=== PATIENT | female | born 1980 | race Caucasian/White ===

== ENCOUNTER → 2017-05-19 | Outpatient (CLI) | payer MEDICAID ==
--- NOTE | 2017-05-19 17:06 | REP ---
TWO-VIEW CHEST: REASON: Cough. COMPARISON: No priors. FINDINGS: The superior mediastinal structures are midline. The cardiac silhouette is unremarkable in size, shape, and position. The diaphragmatic surfaces of the lungs are regular, and the costophrenic angles are clear. The pulmonary greer are clear. The imaged osseous structures are intact. IMPRESSION: There is no acute cardiopulmonary disease. Signed by Rogelio Castañeda DO 05/19/2017 07:32 P
== END ==
LOC: M LAB 13:16 → M RAD 13:16
PROVIDERS: ATTEND Physician Assistant Medical
DX: R06.02 Shortness of breath (principal); R05 Cough

== ENCOUNTER 2018-01-13 20:58 | Emergency (ER) | payer OTHER, MEDICAID ==
[2018-01-14] MEDS ORDERED: NORCO, ANEXSIA 5/325MG TABLET (HYDROcodone/ACETAMINOPHEN) PO (01:30)
== END 2018-01-14 01:46 | disposition home or self-care (01) ==
LOC: M ED 01-14 01:46
DX: S90.32XA Contusion of left foot, initial encounter (principal); W22.8XXA Striking against or struck by other objects, initial encounter; Y92.099 Unspecified place in other non-institutional residence as the place of occurrence of the external cause; Y93.9 Activity, unspecified; Y99.9 Unspecified external cause status; R51 Headache; J45.909 Unspecified asthma, uncomplicated; F41.9 Anxiety disorder, unspecified; F32.9 Major depressive disorder, single episode, unspecified; Z79.899 Other long term (current) drug therapy; Z91.040 Latex allergy status
CPT/HCPCS: 73630

== ENCOUNTER → 2018-04-01 | Outpatient (REF) | payer OTHER ==
[2018-04-01 15:01] LABS: CHLAMYDIA DNA AMPLIFICATION NEGATIVE (NEGATIVE); GC DNA AMPLIFICATION NEGATIVE (NEGATIVE)
== END ==
LOC: M SFHCWAGY 12:53
DX: Z11.3 Encounter for screening for infections with a predominantly sexual mode of transmission (principal)

== ENCOUNTER 2018-04-04 19:51 | Emergency (ER) | payer OTHER ==
[2018-04-04] MEDS: PERCOCET 5MG/325MG TAB PO ×2 (23:49)
[2018-04-05 00:21] LABS: BASO # 0.1 10^3/uL (0.0-0.2); BASO % 0.6 % (0.0-1.0); EOS # 0.4 10^3/uL (0.0-0.50); EOS % 3.7 % (0.0-3.0); HEMATOCRIT 39.1 % (36.0-47.0); HEMOGLOBIN 12.9 g/dl (12.0-15.5); IMMATURE GRANULOCYTE % 0.8 % (0-3.0); LYMPH # 3.7 10^3/uL (1.5-4.5); LYMPH % 35.8 % (24.0-44.0); MEAN CORPUSCULAR HEMOGLOBIN 32.3 pg (27.0-33.0); MEAN CORPUSCULAR VOLUME 97.8 fl (80.0-96.0); MONO # 0.7 10^3/uL (0.0-0.8); MONO % 6.6 % (0.0-5.0); NEUTROPHILS # 5.4 10^3/uL (1.8-7.7); NEUTROPHILS % 52.5 % (36.0-66.0); PLATELET COUNT, AUTOMATED 293 10^3/uL (150-450); RED CELL DISTRIBUTION WIDTH 14.1 % (11.5-14.5); WHITE BLOOD COUNT 10.3 10^3/uL (4.0-10.0)
[2018-04-05 00:24] LABS: KETONE, URINE AUTO RFX NEGATIVE (NEGATIVE); LEUKOCYTE ESTERASE UR AUTO RFX NEGATIVE (NEGATIVE); NITRITE, URINE AUTO RFX NEGATIVE (NEGATIVE); RBC, URINE AUTO RFX 1 /HPF (0-3); SPECIFIC GRAVITY UR AUTO RFX 1.012 (1.002-1.035); SQUAM EPITHELIAL CELL UR AURFX 0 /HPF (0-6); WBC, URINE AUTO RFX 0 /HPF (0-3)
[2018-04-05 00:26] LABS: ANION GAP 5 MEQ/L (8-16); BLOOD UREA NITROGEN 9 MG/DL (7-18); CALCIUM LEVEL 8.4 MG/DL (8.5-10.1); CARBON DIOXIDE LEVEL 27 MEQ/L (21-32); CHLORIDE LEVEL 111 MEQ/L (98-107); CREATININE FOR GFR 0.74 MG/DL (0.55-1.30); GLOMERULAR FILTRATION RATE > 60.0 (>60); GLUCOSE, FASTING 95 MG/DL (70-100); POTASSIUM SERUM 4.2 MEQ/L (3.5-5.1); SODIUM LEVEL 143 MEQ/L (136-145)
[2018-04-05 01:31] LABS: ALBUMIN 3.3 GM/DL (3.2-5.2); ALBUMIN/GLOBULIN RATIO 0.89 (1.00-1.93); ALKALINE PHOSPHATASE 82 U/L (45-117); ALT/SGPT 16 U/L (12-78); AST/SGOT 11 U/L (7-37); BILIRUBIN,DIRECT < 0.1 MG/DL (0.0-0.2); BILIRUBIN,TOTAL < 0.1 MG/DL (0.2-1.0)
== END 2018-04-05 02:18 | disposition home or self-care (01) ==
LOC: M ED 04-05 02:18
DX: N83.01 Follicular cyst of right ovary (principal); N80.9 Endometriosis, unspecified; Z87.42 Personal history of other diseases of the female genital tract; J45.909 Unspecified asthma, uncomplicated; Z98.51 Tubal ligation status; F17.210 Nicotine dependence, cigarettes, uncomplicated; Z91.040 Latex allergy status; Z79.899 Other long term (current) drug therapy
CPT/HCPCS: 76856

== ENCOUNTER 2018-06-09 19:37 | Emergency (ER) | payer OTHER ==
[2018-06-09] MEDS: KETOROLAC 30 MG/ML VIAL (J1885) IV (20:16)
[2018-06-09 20:20] LABS: BASO # 0.1 10^3/uL (0.0-0.2); BASO % 0.5 % (0.0-1.0); EOS # 0.4 10^3/uL (0.0-0.50); EOS % 2.9 % (0.0-3.0); HEMATOCRIT 38.8 % (36.0-47.0); HEMOGLOBIN 12.9 g/dl (12.0-15.5); IMMATURE GRANULOCYTE % 0.6 % (0-3.0); LYMPH # 4.4 10^3/uL (1.5-4.5); LYMPH % 33.1 % (24.0-44.0); MEAN CORPUSCULAR HEMOGLOBIN 31.3 pg (27.0-33.0); MEAN CORPUSCULAR HGB CONC 33.2 g/dl (32.0-36.5); MEAN CORPUSCULAR VOLUME 94.2 fl (80.0-96.0); MONO % 7.4 % (0.0-5.0); NEUTROPHILS # 7.4 10^3/uL (1.8-7.7); NEUTROPHILS % 55.5 % (36.0-66.0); PLATELET COUNT, AUTOMATED 345 10^3/uL (150-450); RED BLOOD COUNT 4.12 10^6/uL (4.00-5.40); RED CELL DISTRIBUTION WIDTH 13.3 % (11.5-14.5); WHITE BLOOD COUNT 13.3 10^3/uL (4.0-10.0)
[2018-06-09 20:35] LABS: PARTIAL THROMBOPLASTIN TIME 28.8 SECONDS (25.4-37.6); PROTHROMBIN TIME 12.2 SECONDS (12.1-14.4)
[2018-06-09 20:47] LABS: ANION GAP 9 MEQ/L (8-16); BLOOD UREA NITROGEN 7 MG/DL (7-18); CALCIUM LEVEL 8.5 MG/DL (8.5-10.1); CARBON DIOXIDE LEVEL 24 MEQ/L (21-32); CHLORIDE LEVEL 111 MEQ/L (98-107); CK-MB VALUE MASS < 1.0 NG/ML (<3.6); CPK CREATINE PHOSPHOKINASE 75 U/L (26-192); CREATININE FOR GFR 0.79 MG/DL (0.55-1.30); GLOMERULAR FILTRATION RATE > 60.0 (>60); GLUCOSE, FASTING 96 MG/DL (70-100); MB/CK RELATIVE INDEX 1.33 (< OR =4); POTASSIUM SERUM 3.4 MEQ/L (3.5-5.1); SODIUM LEVEL 144 MEQ/L (136-145); TROPONIN I < 0.02 NG/ML (< 0.10)
[2018-06-09 21:01] LABS: CONTROL LINE HCG INT CTR LINE PRESENT; HCG, SERUM QUALITATIVE NEGATIVE (NEGATIVE)
[2018-06-09] MEDS ORDERED: ISOVUE-370 76% 100ML VIAL (Q9967) As Ordered (21:08)
[2018-06-09] MEDS: MORPHINE 4 MG/ML 1ML VIAL/SYRINGE (J2270) IV (22:35)
[2018-06-09 23:40] LABS: CK-MB VALUE MASS < 1.0 NG/ML (<3.6); CPK CREATINE PHOSPHOKINASE 66 U/L (26-192); MB/CK RELATIVE INDEX 1.52 (< OR =4); TROPONIN I < 0.02 NG/ML (< 0.10)
== END 2018-06-09 23:55 | disposition home or self-care (01) ==
LOC: M ED 19:37
DX: M94.0 Chondrocostal junction syndrome [Tietze] (principal); R94.31 Abnormal electrocardiogram [ECG] [EKG]; F33.9 Major depressive disorder, recurrent, unspecified; F17.200 Nicotine dependence, unspecified, uncomplicated; Z86.79 Personal history of other diseases of the circulatory system; Z91.040 Latex allergy status; Z79.2 Long term (current) use of antibiotics; Z79.899 Other long term (current) drug therapy
CPT/HCPCS: J2270

== ENCOUNTER 2019-03-19 00:09 | Emergency (ER) | payer OTHER ==
[~2019-03-19] VITALS: Ht 160 cm; Wt 63.6 kg
[~2019-03-19 00:09] MED LIST: ACET1TAB55 PO; AMOX500C PO; GABA-845 PO; HYDR-3715 PO; IBUP-1114 PO; KETO10TAB PO; NAPR-837 PO; PROZ40CA PO; ZOLO50TA PO
[2019-03-19] MEDS ORDERED: KETOROLAC 60 MG/2 ML VIAL (J1885) IM ONE (01:30)
[2019-03-19] MEDS ORDERED: CYCLOBENZAPRINE 10 MG TAB PO ONE (01:30)
--- NOTE | 2019-03-19 02:34 | REPVR ---
EXAM: CT Cervical Spine Without Contrast EXAM DATE/TIME: 03/19/2019 1:51 AM CLINICAL HISTORY: 38 years old, female; Injury or trauma; Fall; Initial encounter; Blunt trauma; Additional info: Fell TECHNIQUE: Imaging protocol: Computed tomography images of the cervical spine without contrast. Coronal and sagittal reformatted images were created and reviewed. Radiation optimization: All CT scans at this facility use at least one of these dose optimization techniques: automated exposure control; mA and/or kV adjustment per patient size (includes targeted exams where dose is matched to clinical indication); or iterative reconstruction. COMPARISON: No relevant prior studies available. FINDINGS: Vertebrae: No acute fracture. Normal alignment. Discs/Spinal canal/Neural foramina: No spinal stenosis. No neural foraminal narrowing. Soft tissues: Unremarkable. Lungs: Lung apices are normal. IMPRESSION: Negative CT cervical spine. No fracture or subluxation is evident and no spinal or foraminal stenosis. Electronically signed by: Gael Gray On 03/19/2019 02:33:54 AM
--- NOTE | 2019-03-19 02:37 | REPVR ---
EXAM: CT Lumbar Spine Without Contrast EXAM DATE/TIME: 03/19/2019 1:51 AM CLINICAL HISTORY: 38 years old, female; Injury or trauma; Fall; Initial encounter; Blunt trauma (contusions or hematomas); Additional info: Fell TECHNIQUE: Imaging protocol: Computed tomography images of the lumbar spine without contrast. Coronal and sagittal reformatted images were created and reviewed. Radiation optimization: All CT scans at this facility use at least one of these dose optimization techniques: automated exposure control; mA and/or kV adjustment per patient size (includes targeted exams where dose is matched to clinical indication); or iterative reconstruction. COMPARISON: No relevant prior studies available. FINDINGS: Vertebrae: No acute fracture. Normal alignment. L1-L2: The disc is well-maintained with early degenerative changes of the facets no spinal or foraminal stenosis. L2-L3: Minimal facet arthropathy with no spinal or foraminal stenosis. L3-L4: Minimal facet arthropathy with no spinal or foraminal stenosis. L4-L5: Minimal facet arthropathy with no spinal or foraminal stenosis. L5-S1: Minimal diffuse bulge of the disc with minimal annular calcification posteriorly to the left of midline and minimal facet arthropathy with no spinal or foraminal stenosis. Soft tissues: Unremarkable. IMPRESSION: 1. Minimal multilevel facet arthropathy. 2. Otherwise negative CT lumbar spine. No fracture or subluxation is evident and no spinal or foraminal stenosis. Electronically signed by: Gael Gray On 03/19/2019 02:37:36 AM
--- NOTE | 2019-03-19 02:41 | REPVR ---
EXAM: CT Maxillofacial Without Contrast EXAM DATE/TIME: 03/19/2019 1:51 AM CLINICAL HISTORY: 38 years old, female; Injury or trauma; Fall; Initial encounter; Blunt trauma (contusions or hematomas); Forehead; Additional info: Fell TECHNIQUE: Imaging protocol: Computed tomography images of the face without contrast. Coronal and sagittal reformatted images were created and reviewed. Radiation optimization: All CT scans at this facility use at least one of these dose optimization techniques: automated exposure control; mA and/or kV adjustment per patient size (includes targeted exams where dose is matched to clinical indication); or iterative reconstruction. COMPARISON: No relevant prior studies available. FINDINGS: Orbits: Orbits are normal. Globes are unremarkable. Sinuses: Normal. No air-fluid levels. Bones/joints: No fractures. Dental: Caries involving the few remaining teeth in the mandible. Absent maxillary teeth. Soft tissues: Slight left forehead soft tissue swelling. IMPRESSION: 1. Slight left forehead soft tissue swelling. 2. Absence of most teeth with caries involving some of the few remaining mandibular teeth. 3. Otherwise negative CT facial bones. No fracture. Electronically signed by: Gael Gray On 03/19/2019 02:40:46 AM
[2019-03-19 02:57] VITALS: BP 129/60
[2019-03-19] MEDS ORDERED: CYCL5TAB PO (03:01)
== END 2019-03-19 03:17 | disposition home or self-care (01) ==
LOC: M ED 00:09
DX: M54.2 Cervicalgia (principal); M54.5 Low back pain; R22.0 Localized swelling, mass and lump, head; W10.8XXA Fall (on) (from) other stairs and steps, initial encounter; Y92.099 Unspecified place in other non-institutional residence as the place of occurrence of the external cause; Y93.9 Activity, unspecified; F17.210 Nicotine dependence, cigarettes, uncomplicated; J45.909 Unspecified asthma, uncomplicated; N80.9 Endometriosis, unspecified; R51 Headache; Z79.891 Long term (current) use of opiate analgesic; Z79.899 Other long term (current) drug therapy; Z91.040 Latex allergy status
CPT/HCPCS: 70486; 72125; 72131; 96372; 99283; J1885

== ENCOUNTER 2019-11-29 13:44 | Emergency (ER) | payer OTHER ==
[~2019-11-29 13:44] MED LIST changes: -ACET-683 PO; -AUGM875T28 PO; -GABA-843; -TRAM50TA2 PO
[2019-11-29] MEDS ORDERED: GABA-843 (13:56)
[2019-11-29] MEDS ORDERED: ACET-683 PO (13:56)
[2019-11-29 14:14] LABS: BASO # 0.1 10^3/uL (0.0-0.2); BASO % 0.5 % (0.0-1.0); EOS # 0.6 10^3/uL (0.0-0.5); EOS % 4.2 % (0.0-3.0); HEMATOCRIT 37.4 % (36.0-47.0); HEMOGLOBIN 11.8 g/dl (12.0-15.5); LYMPH # 3.3 10^3/uL (1.5-5.0); LYMPH % 22.1 % (24.0-44.0); MEAN CORPUSCULAR HGB CONC 31.6 g/dl (32.0-36.5); MEAN CORPUSCULAR VOLUME 98.2 fl (80.0-96.0); MONO # 0.8 10^3/uL (0.0-0.8); MONO % 5.2 % (0.0-5.0); NEUTROPHILS % 67.4 % (36.0-66.0); PLATELET COUNT, AUTOMATED 361 10^3/uL (150-450); RED BLOOD COUNT 3.81 10^6/uL (4.00-5.40); WHITE BLOOD COUNT 14.9 10^3/uL (4.0-10.0)
[2019-11-29 14:52] LABS: ALBUMIN 3.2 GM/DL (3.2-5.2); ALT/SGPT 12 U/L (12-78); BILIRUBIN,DIRECT < 0.1 MG/DL (0.0-0.2); BILIRUBIN,TOTAL 0.3 MG/DL (0.2-1.0); BLOOD UREA NITROGEN 3 MG/DL (7-18); CALCIUM LEVEL 8.5 MG/DL (8.5-10.1); CARBON DIOXIDE LEVEL 30 MEQ/L (21-32); CHLORIDE LEVEL 107 MEQ/L (98-107); CREATININE FOR GFR 0.84 MG/DL (0.55-1.30); GLOMERULAR FILTRATION RATE > 60.0 (>60); GLUCOSE, FASTING 93 MG/DL (70-100); POTASSIUM SERUM 3.6 MEQ/L (3.5-5.1); SODIUM LEVEL 142 MEQ/L (136-145); TOTAL PROTEIN 6.8 GM/DL (6.4-8.2)
[2019-11-29 15:00] VITALS: BP 129/62
[2019-11-29] MEDS ORDERED: traMADol 50 MG TAB PO ONE (15:00)
[2019-11-29] MEDS ORDERED: TRAM50TA2 PO (15:17)
[2019-11-29] MEDS ORDERED: AUGM875T28 PO (15:17)
== END 2019-11-29 15:34 | disposition home or self-care (01) ==
LOC: EDBD 13:44 → M ED 13:44
DX: K04.7 Periapical abscess without sinus (principal); Z79.899 Other long term (current) drug therapy; Z91.040 Latex allergy status

== ENCOUNTER → 2019-11-29 | Outpatient (REF) | payer OTHER ==
[~2019-11-29] MED LIST changes: +ACET-683 PO; +AUGM875T28 PO; +CYCL5TAB PO; +GABA-843; +TRAM50TA2 PO
== END ==
LOC: M LAB REF 14:31
PROVIDERS: ATTEND Internal Medicine
DX: K05.219 Aggressive periodontitis, localized, unspecified severity (principal)

== ENCOUNTER → 2020-07-01 | Outpatient (CLI) | payer OTHER ==
[~2020-07-01] MED LIST changes: +ACET-683 PO; +AUGM875T28 PO; +GABA-843; +TRAM50TA2 PO
--- NOTE | 2020-07-01 19:07 | REP ---
INDICATION: WRIST PAIN. COMPARISON: None TECHNIQUE: Five views FINDINGS: There is no acute fracture or destructive osseous lesion. IMPRESSION: Negative exam. <Electronically signed by Rogelio Castañeda > 07/01/20 [id number]
== END ==
LOC: M WUC 18:02
PROVIDERS: ATTEND Nurse Practitioner Family
DX: M25.532 Pain in left wrist (principal)

== ENCOUNTER 2020-09-25 16:31 | Emergency (ER) | payer OTHER ==
[~2020-09-25] VITALS: Ht 160 cm; Wt 63.7 kg
[~2020-09-25 16:31] MED LIST changes: +GABA-282; -GABA-843
--- OUTSIDE RECORDS SUMMARY | 2020-09-25 16:38 | CCD | Continuity of Care Document ---
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 Organization Unknown Address [address] [place] [id number] Phone [phone] Problems Description No Information Available Social History Type Date Description Comments Sex Unknown ETOH Use Occasionally consumes alcohol Tobacco Use Start: Unknown Patient is a current smoker, smo kes every day Tobacco Use Start: Unknown Heavy tobacco smoker (more than 10 cigarettes/day) Smoking Status Reviewed: 07/01/20 Heavy tobacco smoker (more than 10 cigarettes/day) Allergies, Adverse Reactions, Alerts Description No Known Drug Allergies Medications Active Medications SIG Qnty Indications Ordering Provide r Date Prozac 40mg Capsules Unknown Gabapentin 300mg Capsules 1 three times a day x 7 days Unknown Immunizations Description No Information Available Vital Signs Date Vital Result Comment 07/01/2020 5:41pm BP Systolic 133 mmHg BP Diastolic 81 mmHg Heart Rate 74 /min Respiratory Rate 16 /min O2 % BldC Oximetry 97 % Body Temperature 98.4 F Weight 140.00 lb Height 63 inches 5'3" BMI (Body Mass Index) 24.8 kg/m2 Pain Level 8 Results Description No Information Available Procedures Description No Information Available Medical Devices Description No Information Available Encounters Type Date Location Provider Dx Diagnosis Office Visit 07/01/2020 5:20p Main Office Ericka Yan NP M25. 532 Pain in left wrist M79.642 Pain in left hand Assessments Date Code Description Provider 07/01/2020 M25.532 Pain in left wrist Ericka carias NP 07/01/2020 M79.642 Pain in left hand Ericka álvarez NP Plan of Treatment 07/01/2020 - Ericka Yan NP* M25.532 Pain in left wrist* Comments:* wet read xray: no acute fracture/dislocation appreciatedpending radiologist repo rtACE wrapped in officeRICE, alt with heattylenol PRN for pain/swellingf/u PRN or with PCPpatient v/u & agrees to plan * M79.642 Pain in left hand Functional Status Description No Information Available Mental Status Description No Information Available Referrals Description No Information Available
--- OUTSIDE RECORDS SUMMARY | 2020-09-25 16:38 | CCD | Continuity of Care Document ---
Author Author Jeane YAN [employer] OPER[employer] Organization Unknown Address [address] [place] [id number] Phone [phone] Problems Description No Information Available Social History [...] to plan * M79.642 Pain in left hand* Comments:* as above Functional Status Description No Information Available Mental Status Description No Information Available Referrals Description No Information Available
--- OUTSIDE RECORDS SUMMARY | 2020-09-25 16:38 | CCD ---
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 Name Role Phone Everardo, Namrata DO Unavailable Unavailable Everardo, Namrata DO Unavailable Unavailable Everardo, Namrata DO Unavailable Unavailable Everardo, Namrata DO Unavailable Unavailable Everardo, Namrata DO Unavailable Unavailable Everardo, Namrata DO Unavailable Unavailable Everardo, Namrata DO Unavailable Unavailable Everardo, Namrata DO Unavailable Unavailable Everardo, Namrata DO Unavailable Unavailable Everardo, Namrata DO Unavailable Unavailable Everardo, Namrata DO Unavailable Unavailable Everardo, Namrata DO Unavailable Unavailable Everardo, Namrata DO Unavailable Unavailable Everardo, Namrata DO Unavailable Unavailable Everardo, Namrata DO Unavailable Unavailable Everardo, Namrata DO Unavailable Unavailable Everardo, Namrata DO Unavailable Unavailable Everardo, Namrata DO Unavailable Unavailable Everardo, Namrata DO Unavailable Unavailable Everardo, Namrata DO Unavailable Unavailable Everardo, Namrata DO Unavailable Unavailable Everardo, Namrata DO Unavailable Unavailable Everardo, Namrata DO Unavailable Unavailable Everardo, Namrata DO Unavailable Unavailable Everardo, Namrata DO Unavailable Unavailable Everardo, Namrata DO Unavailable Unavailable Everardo, Namrata DO Unavailable Unavailable Everardo, Namrata DO Unavailable Unavailable Everardo, Namrata DO Unavailable Unavailable Everardo, Namrata DO Unavailable Unavailable Everardo, Namrata DO Unavailable Unavailable Everardo, Namrata DO Unavailable Unavailable Everardo, Namrata DO Unavailable Unavailable Everardo, Namrata DO Unavailable Unavailable Everardo, Namrata DO Unavailable Unavailable Everardo, Namrata DO Unavailable Unavailable Everardo, Namrata DO Unavailable Unavailable Everardo, Namrata DO Unavailable Unavailable Everardo, Namrata DO Unavailable Unavailable Everardo, Namrata DO Unavailable Unavailable Everardo, Namrata DO Unavailable Unavailable Everardo, Namrata DO Unavailable Unavailable Everardo, Namrata DO Unavailable Unavailable Everardo, Namrata DO Unavailable Unavailable Everardo, Namrata DO Unavailable Unavailable Everardo, Namrata DO Unavailable Unavailable Everardo, Namrata DO Unavailable Unavailable Everardo, Namrata DO Unavailable Unavailable Everardo, Namrata DO Unavailable Unavailable Everardo, Namrata DO Unavailable Unavailable Everardo, Namrata DO Unavailable Unavailable Everardo, Namrata DO Unavailable Unavailable Everardo, Namrata DO Unavailable Unavailable Everardo, Namrata DO Unavailable Unavailable Everardo, Namrata DO Unavailable Unavailable Everardo, Namrata DO Unavailable Unavailable Everardo, Namrata DO Unavailable Unavailable Everardo, Namrata DO Unavailable Unavailable Everardo, Namrata DO Unavailable Unavailable Everardo, Namrata DO Unavailable Unavailable Everardo, Namrata DO Unavailable Unavailable Everardo, Namrata DO Unavailable Unavailable Everardo, Namrata DO Unavailable Unavailable Everardo, Namrata DO Unavailable Unavailable Everardo, Namrata DO Unavailable Unavailable Everardo, Namrata DO Unavailable Unavailable Everardo, Namrata DO Unavailable Unavailable Everardo, Namrata DO Unavailable Unavailable Everardo, Namrata DO Unavailable Unavailable Everardo, Namrata DO Unavailable Unavailable Everardo, Namrata DO Unavailable Unavailable Everardo, Namrata DO Unavailable Unavailable Juan, Ericka LEGAL TRANSCRIBER Unavailable Unavailable Juan, Ericka LEGAL TRANSCRIBER Unavailable Unavailable Juan, Ericka LEGAL TRANSCRIBER Unavailable Unavailable Juan, Ericka LEGAL TRANSCRIBER Unavailable Unavailable Juan, Ericka LEGAL TRANSCRIBER Unavailable Unavailable Juan, Ericka LEGAL TRANSCRIBER Unavailable Unavailable Juan, Ericka LEGAL TRANSCRIBER Unavailable Unavailable Juan, Ericka LEGAL TRANSCRIBER Unavailable Unavailable Juan, Ericka LEGAL TRANSCRIBER Unavailable Unavailable Juan, Ericka LEGAL TRANSCRIBER Unavailable Unavailable Juan, Ericka LEGAL TRANSCRIBER Unavailable Unavailable Re-disclosure Warning The records that you are about to access may contain information from federally-assisted alcohol or drug abuse programs. If such information is present, then the following federally mandated warning applies: This information has been disclosed to you from records protected by federal confidentiality rules (42 CFR part 2). The federal rules prohibit you from making any further disclosure of this information unless further disclosure is expressly permitted by the written consent of the person to whom it pertains or as otherwise permitted by 42 CFR part 2. A general authorization for the release of medical or other information is NOT sufficient for this purpose. The Federal rules restrict any use of the information to criminally investigate or prosecute any alcohol or drug abuse patient.The records that you are about to access may contain highly sensitive health information, the redisclosure of which is protected by Article 27-F of the [facility] Public Health law. If you continue you may have access to information: Regarding HIV / AIDS; Provided by facilities licensed or operated by the [facility] Office of Mental Health; or Provided by the [facility] Office for People With Developmental Disabilities. If such information is present, then the following [facility] mandated warning applies: This information has been disclosed to you from confidential records which are protected by state law. State law prohibits you from making any further disclosure of this information without the specific written consent of the person to whom it pertains, or as otherwise permitted by law. Any unauthorized further disclosure in violation of state law may result in a fine or group home sentence or both. A general authorization for the release of medical or other information is NOT sufficient authorization for further disc losure. Family History Family Member Name Family Member Gender Family Member Status Date o f Status Description Data Source(s) Unknown Male Problem [facility] ([facility]) Unknown Male Problem [facility] ([facility]) Unknown Male Problem [facility] ([facility] Encounters Encounter Providers Location Date Indications Data Source(s ) Outpatient Attender: Ericka sung 07/01/2020 04:20:00 PM EST [facility] ([facility]) Outpatient Attender: Namrata Youngblood 03/04 02:45:00 PM EDT [facility] ([facility] ) Outpatient Attender: Namrata Youngblood 11/29 01:15:00 PM EDT [facility] ([facility] ) Medications Medication Brand Name Start Date Product Form Dose Route Admi nistrative Instructions Pharmacy Instructions Status Indications Reaction Description Data Source(s) 300 mg 09/01/2020 12:00:00 AM EST capsule 30 TAKE ONE CAPSULE BY MOUTH AT BEDTIME TAKE ONE CAPSULE BY MOUTH AT BEDTIME SOLD: 09/01/2020 [facility] 20 mg 08/28/2020 12:00:00 AM EST capsule 60 TAKE ONE CAPSULE BY MOUTH TWICE A DAY TAKE ONE CAPSULE BY MOUTH TWICE A DAY SOLD: 09/01/2020 [facility] 300 mg 01/25/2020 12:00:00 AM EDT capsule 30 TAKE ONE CAPSULE BY MOUTH AT BEDTIME TAKE ONE CAPSULE BY MOUTH AT BEDTIME SOLD: 03/30/2020 [facility] 300 mg 01/25/2020 12:00:00 AM EDT capsule 30 TAKE ONE CAPSULE BY MOUTH AT BEDTIME TAKE ONE CAPSULE BY MOUTH AT BEDTIME SOLD: 07/02/2020 [facility] 300 mg 01/25/2020 12:00:00 AM EDT capsule 30 TAKE ONE CAPSULE BY MOUTH AT BEDTIME TAKE ONE CAPSULE BY MOUTH AT BEDTIME SOLD: 04/29/2020 [facility] 300 mg 01/25/2020 12:00:00 AM EDT capsule 30 TAKE ONE CAPSULE BY MOUTH AT BEDTIME TAKE ONE CAPSULE BY MOUTH AT BEDTIME SOLD: 05/22/2020 [facility] 300 mg 01/25/2020 12:00:00 AM EDT capsule 30 TAKE ONE CAPSULE BY MOUTH AT BEDTIME TAKE ONE CAPSULE BY MOUTH AT BEDTIME SOLD: 01/25/2020 [facility] 300 mg 01/25/2020 12:00:00 AM EDT capsule 30 TAKE ONE CAPSULE BY MOUTH AT BEDTIME TAKE ONE CAPSULE BY MOUTH AT BEDTIME SOLD: 07/31/2020 [facility] 300 mg 01/25/2020 12:00:00 AM EDT capsule 30 TAKE ONE CAPSULE BY MOUTH AT BEDTIME TAKE ONE CAPSULE BY MOUTH AT BEDTIME SOLD: 02/21/2020 [facility] PPD 01/17/2020 12:00:00 AM EDT completed [facility] Medication administered onsite 5-325 mg 12/29/2019 12:00:00 AM EDT tablet 10 TAKE ONE TABLET BY MOUTH EVERY 4 HOURS NEEDED FOR PAIN, MAXIMUM DAILY DOSE = 6 TAKE ONE TABLET BY MOUTH EVERY 4 HOURS NEEDED FOR PAIN, MAXIMUM DAILY DOSE = 6 SOLD: 12/29/2019 [facility] 600 mg 12/27/2019 12:00:00 AM EDT tablet 20 TAKE 1 TABLET BY MOUTH EVERY 6 HOURS NEEDED TAKE 1 TABLET BY MOUTH EVERY 6 HOURS NEEDED SOLD: 020 [facility] 0.12 % 12/27/2019 12:00:00 AM EDT mouthwash 473 RINSE MOUTH WITH 15MLS (1 CAPFUL) FOR 30 SECONDS IN THE MORNING AND IN THE EVENING AFTER TOOTHBRUSHING. SPIT OUT AFTER RINSING. DO NOT SWALLOW. RINSE MOUTH WITH 15MLS (1 CAPFUL) FOR 30 SECONDS IN THE MORNING AND IN THE EVENING AFTER TOOTHBRUSHING. SPIT OUT AFTER RINSING. DO NOT SWALLOW. SOLD: 12/27/2019 [facility] 325 mg 12/27/2019 12:00:00 AM EDT tablet 12 TAKE 1 TABLET BY MOUTH EVERY 6 HOURS NEEDED FOR PAIN TAKE 1 TABLET BY MOUTH EVERY 6 HOURS NEEDED FOR PAIN SOLD: 12/27/2019 [facility] 500 mg 12/19/2019 12:00:00 AM EDT tablet 30 TAKE 1 TABLET BY MOUTH TWO TIMES A DAY WITH FOOD FOR 10 DAYS THEN NEEDED TAKE 1 TABLET BY MOUTH TWO TIMES A DAY WITH FOOD FOR 10 DAYS THEN NEEDED SOLD: 12/27/2019 [facility] Naproxen 500 MG Oral Tablet Naproxen 12/19/2019 12:00:00 AM EDT ORAL active [facility] ([facility]) 600 mg 12/11/2019 12:00:00 AM EDT tablet 21 TAKE ONE TABLET BY MOUTH THREE TIMES A DAY WITH FOOD FOR 7 DAYS TAKE ONE TABLET BY MOUTH THREE TIMES A D AY WITH FOOD FOR 7 DAYS SOLD: 12/11/2019 [facility] 500 mg 12/11/2019 12:00:00 AM EDT capsule 21 TAKE ONE CAPSULE BY MOUTH THREE TIMES A DAY FOR 7 DAYS TAKE ONE CAPSULE BY MOUTH THREE TIMES A DAY FOR 7 DAYS SOLD: 12/11/2019 [facility] 5-325 mg 11/30/2019 12:00:00 AM EDT tablet 30 TAKE ONE TABLET BY MOUTH EVERY 8 HOURS NEEDED FOR PAIN, MAXIMUM DAILY DOSE = 3 TAKE ONE TABLET BY MOUTH EVERY 8 HOURS NEEDED FOR PAIN, MAXIMUM DAILY DOSE = 3 SOLD: 11/30/2019 [facility] Acetaminophen 325 MG / Oxycodone Hydrochloride 5 MG Or al Tablet [Percocet] Percocet 11/30/2019 12:00:00 AM EDT ORAL active [facility] ([facility]) 875-125 mg 11/29/2019 12:00:00 AM EDT tablet 14 TAKE ONE TABLET BY MOUTH TWICE A DAY TAKE ONE TABLET BY MOUTH TWICE A DAY SOLD: 11/29/2019 [facility] 50 mg 11/29/2019 12:00:00 AM EDT tablet 4 TAKE ONE TABLET BY MOUTH TWICE A DAY NEEDED FOR PAIN MAXIMUM DAILY DOSE = 2 TAKE ONE TABLET BY MOUTH TWICE A DAY NEEDED FOR PAIN MAXIMUM DAILY DOSE = 2 SOLD: 11/29/2019 [facility] 20 mg 11/20/2019 12:00:00 AM EDT capsule 60 TAKE ONE CAPSULE BY MOUTH TWICE A DAY TAKE ONE CAPSULE BY MOUTH TWICE A DAY SOLD: 12/27/2019 [facility] 20 mg 11/20/2019 12:00:00 AM EDT capsule 60 TAKE ONE CAPSULE BY MOUTH TWICE A DAY TAKE ONE CAPSULE BY MOUTH TWICE A DAY SOLD: 01/25/2020 [facility] 20 mg 11/20/2019 12:00:00 AM EDT capsule 60 TAKE ONE CAPSULE BY MOUTH TWICE A DAY TAKE ONE CAPSULE BY MOUTH TWICE A DAY SOLD: 07/31/2020 [facility] 20 mg 11/20/2019 12:00:00 AM EDT capsule 60 TAKE ONE CAPSULE BY MOUTH TWICE A DAY TAKE ONE CAPSULE BY MOUTH TWICE A DAY SOLD: 03/03/2020 [facility] 20 mg 11/20/2019 12:00:00 AM EDT capsule 60 TAKE ONE CAPSULE BY MOUTH TWICE A DAY TAKE ONE CAPSULE BY MOUTH TWICE A DAY SOLD: 11/29/2019 [facility] 20 mg 11/20/2019 12:00:00 AM EDT capsule 60 TAKE ONE CAPSULE BY MOUTH TWICE A DAY TAKE ONE CAPSULE BY MOUTH TWICE A DAY SOLD: 04/29/2020 [facility] 20 mg 11/20/2019 12:00:00 AM EDT capsule 60 TAKE ONE CAPSULE BY MOUTH TWICE A DAY TAKE ONE CAPSULE BY MOUTH TWICE A DAY SOLD: 07/02/2020 [facility] 250 mg 09/26/2019 12:00:00 AM EST tablet 6 TAKE TWO TABLETS BY MOUTH AT ONCE ON THE FIRST DAY THEN TAKE ONE DAILY THEREAFTER TAKE TWO TABLETS BY MOUTH AT ONCE ON THE FIRST DAY THEN TAKE ONE DAILY THEREAFTER SOLD: 09/27/2019 [facility] 600 mg 09/19/2019 12:00:00 AM EST tablet 18 TAKE ONE TABLET BY MOUTH THREE TIMES A DAY NEEDED TAKE ONE TABLET BY MOUTH THREE TIMES A DAY NEEDED S OLD: 09/20/2019 [facility] 500 mg 09/19/2019 12:00:00 AM EST capsule 21 TAKE ONE CAPSULE BY MOUTH THREE TIMES A DAY UNTIL GONE TAKE ONE CAPSULE BY MOUTH THREE TIMES A DAY UNTIL GONE SOLD: 09/20/2019 [facility] 300 mg 08/14/2019 12:00:00 AM EST capsule 30 TAKE ONE CAPSULE BY MOUTH AT BEDTIME TAKE ONE CAPSULE BY MOUTH AT BEDTIME SOLD: 10/03/2019 [facility] 300 mg 08/14/2019 12:00:00 AM EST capsule 30 TAKE ONE CAPSULE BY MOUTH AT BEDTIME TAKE ONE CAPSULE BY MOUTH AT BEDTIME SOLD: 01/01/2020 [facility] 300 mg 08/14/2019 12:00:00 AM EST capsule 30 TAKE ONE CAPSULE BY MOUTH AT BEDTIME TAKE ONE CAPSULE BY MOUTH AT BEDTIME SOLD: 10/31/2019 [facility] 300 mg 08/14/2019 12:00:00 AM EST capsule 30 TAKE ONE CAPSULE BY MOUTH AT BEDTIME TAKE ONE CAPSULE BY MOUTH AT BEDTIME SOLD: 11/29/2019 [facility] 300 mg 08/14/2019 12:00:00 AM EST capsule 30 TAKE ONE CAPSULE BY MOUTH AT BEDTIME TAKE ONE CAPSULE BY MOUTH AT BEDTIME SOLD: 08/14/2019 [facility] 20 mg 03/10/2019 12:00:00 AM EDT capsule 60 TAKE ONE CAPSULE BY MOUTH TWICE A DAY TAKE ONE CAPSULE BY MOUTH TWICE A DAY SOLD: 08/14/2019 [facility] 20 mg 03/10/2019 12:00:00 AM EDT capsule 60 TAKE ONE CAPSULE BY MOUTH TWICE A DAY TAKE ONE CAPSULE BY MOUTH TWICE A DAY SOLD: 10/25/2019 [facility] 20 mg 03/10/2019 12:00:00 AM EDT capsule 60 TAKE ONE CAPSULE BY MOUTH TWICE A DAY TAKE ONE CAPSULE BY MOUTH TWICE A DAY SOLD: 09/18/2019 [facility] Insurance Providers Payer name Policy type / Coverage type Policy ID Covered constitution party ID Covered constitution party's relationship to gonzalez Policy Gonzalez Plan Information [facility] O [id number] S [id number] [facility] COMMUNITY PLAN MCDO [id number] SP [id number] [id number] SP [id number] [facility] Community Plan Commercial [id number] Self [id number] [facility] Community Plan Commercial [id number] Self [id number] Medicaid Medigap Part B [id number] Self [id number] DO Not Use (Now #114) Commercial [id number] Family Dependent [id number] [facility] Community Warren/Ess PLS Commercial [id number] Self [id number] [facility] Community Plan Commercial [id number] Self [id number] [facility] Community Plan Commercial [id number] Self [id number] [facility] Community Plan Commercial [id number] Self [id number] Medicaid Medigap Part B [id number] Self [id number] DO Not Use (Now #114) Commercial [id number] Family Dependent [id number] ANSI-Medicaid [id number] [facility] Community Plan Commercial [id number] Self [id number] [facility] Community Plan Commercial [id number] Self [id number] [facility] Plan Commercial [id number] Self [id number] Medicaid Medigap Part B [id number] Self [id number] DO Not Use (Now #114) Commercial [id number] Family Dependent [id number] [facility] Plan Commercial [id number] Self [id number] ANSI-Medicaid [id number] ANSI-Medicaid [id number] Medicaid Medigap Part B [id number] Self [id number] DO Not Use (Now #114) Commercial [id number] Family Dependent [id number] Medicaid Medigap Part B [id number] Self [id number] DO Not Use (Now #114) Commercial [id number] Family Dependent [id number] [facility] Community Plan Commercial [id number] Self [id number] Medicaid Medigap Part B [id number] Self [id number] DO Not Use (Now #114) Commercial [id number] Family Dependent [id number] MEDICAID [id number] SP [id number] Medicaid Medigap Part B [id number] Self [id number] [employer] Commercial [id number] Family Dependent [id number] Medicaid Medigap Part B [id number] Self [id number] [employer] Commercial [id number] Family Dependent [id number] Medicaid Medigap Part B [id number] Self [id number] [employer] Commercial [id number] Family Dependent [id number] [facility] Community Warren/Ess PLS Commercial [id number] Self [id number] Medicaid Medigap Part B [id number] Self [id number] [employer] Commercial [id number] Family Dependent [id number] Medicaid Medigap Part B [id number] Self [id number] [employer] Commercial [id number] Family Dependent [id number] UNHC COMMUNITY PLAN MCDHMO [id number] SP [id number] [facility] Warren/Ess PLS Commercial [id number] Self [id number] Medicaid Medigap Part B 1 1 Self 1 1 [employer] Commercial Family Dependent UNHC COMMUNITY PLAN MCDHMO [id number] SP [id number] SELF PAY ONLY [id number] SP [id number] [facility] COMMUNITY PLAN MCDHMO [id number] SP [id number] [facility] Community Plan Commercial Self [facility]-Community Plan-[place]ren Commercial Self [facility]-Community Plan-Warren Commercial Self [facility] [id number] [facility] [id number] Results ID Date Data Source [id number] 03/04/2020 12:00:00 AM EDT [facility] Imaging Namrata Mcgee DO Patient Name: DEISY [id number] [facility] Date of : 1980[place] [address] [facility]: [facility] [id number] Fax: [phone] EXAM: SHOULDER (COMPLETE-MINIMUM 2 VIEWS) LEFT X-RAYCLINICAL INFORMATION: Fell from stairs, trauma.Three views are provided. Comparison to the humerus this date. AC jointshows no widening of the joint space or elevation of the clavicle. There isno clavicular rib, scapular or humeral head fracture. No subluxation ordislocation. Acromion and coracoid were grossly intact.IMPRESSION:1. Negative right shoulder series for fracture or acute bony finding. 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 This is well before the costovertebral articulation. Thereis also an old healed and remodeled 5th rib fracture evidentposterolaterally.SCARLET Medrano/Jimi you for referring SERGO SANDOVAL to our office. Electronically Signed - VJ BISWAS MD 03/05/20 8:24 Name Value Range Interpretation Code Description Data Elda rce(s) Supporting Document(s) ID Date Data Source [id number] 03/04/2020 12:00:00 AM EDT [facility] Imaging Namrata Mcgee DO Patient Name: SERGO [id number] [facility] Date of : 1980[address] Date of Exam: 03/04/2020[facility][Note 3]kingsley LUCIUS [id number]#: Fax: [phone] EXAM: FOREARM LEFT X-RAYCLINICAL INFORMATION: Trauma. Patient fell.COMPARISON: Humerus this date.The radius and ulna are without fracture or focal lesion. Articularrelationships at the elbow and wrist were unremarkable .IMPRESSION:1. Negative left forearm series.SCARLET Medrano/Jimi you for referring SERGO SANDOVAL to our office. Electronically Signed - VJ BISWAS MD 03/05/20 8:24 Name Value Range Interpretation Code Description Data Edla rce(s) Supporting Document(s) ID Date Data Source [id number] 03/04/2020 12:00:00 AM EDT [facility] Imaging Namrata Mcgee DO Patient Name: SERGO [id number] [facility] Date of : 1980[address] Date of Exam: 03/04/2020[place] [id number]#: Fax: [phone] EXAM: HUMERUS LEFT X-RAYCLINICAL INFORMATION: Patient fell. Trauma.COMPARISON: Shoulder and forearm series this date.FINDINGS: The humeral shaft is unremarkable. The humeral head articulatesnormally with the glenoid. AC joint is unremarkable. That portion of theelbow seen on these two images was unremarkable.IMPRESSION:1. No fracture or focal bone lesion of the humerus.SCARLET Medrano/Jimi you for referring SERGO SANDOVAL to our office. Electronically Signed - VJ BISWAS MD 03/05/20 8:24 Name Value Range Interpretation Code Description Data Elda rce(s) Supporting Document(s) ID Date Data Source [id number] 11/30/2019 01:45:00 PM EDT [facility] ([facility]) Name Value Range Interpretation Code Description Data Elda rce(s) Supporting Document(s) Erythrocyte sedimentation rate by Sebastianergren method 25 mm/hr 0-15 [facility] Natriuretic peptide B [Mass/volume] in Serum or Plasma 16.9 pg/mL 0.0 -100.0 [facility] [facility] ID Date Data Source [id number] 11/29/2019 02:02:00 PM EDT [facility] Name Value Range Interpretation Code Description Data Elda rce(s) Supporting Document(s) C reactive protein [Mass/volume] in Serum or Plasma by High sensitivity method 0.52 mg/dL 0.00-0.30 [facility] [facility] ID Date Data Source [id number] 11/29/2019 02:02:00 PM EDT [facility] Name Value Range Interpretation Code Description Data Elda rce(s) Supporting Document(s) Thyrotropin [Units/volume] in Serum or Plasma by Detec tion limit <= 0.05 mIU/L 1.590 uIU/ML 0.358-3.740 [facility] [facility] ID Date Data Source [id number] 11/29/2019 02:02:00 PM EDT [facility] Name Value Range Interpretation Code Description Data Elda rce(s) Supporting Document(s) Blood Urea Nitrogen 3 mg/dL 7-18 [facility] ([facility]) Glucose, Fasting 93 mg/dL 70-100 [facility] Creatinine For GFR 0.84 mg/dL 0.55-1.30 [facility] ([facility] Sodium Level 142 meq/L 136-145 [facility] ([facility] [facility] Glomerular Filtration Rate Laboratory test result [facility] ([facility]) <content>Units are mL/min/1.73 m2</content>
<content></content>
<content>Chronic Kidney Disease Staging per NKF:</content>
<content></content>
<content>Stage I & II GFR >=60 Normal to Mildly Decreased</content>
<content>Stage III GFR 30- 59 Moderately Decreased</content>
<content>Stage IV GFR 15-29 Severely Decreased</content>
<content>Stage V GFR <15 Very Little GFR Left</content>
<content>ESRD GFR <15 on SENIOR UI WEB DEVELOPER</content>
<content></content> Chloride Level 107 meq/L 98-107 [facility] ([facility]) Carbon Dioxide Level 30 meq/L 21-32 [facility] ([facility]) Anion Gap 5 meq/L 8-16 [facility] ([place] [facility]) Potassium Serum 3.6 meq/L 3.5-5.1 [facility] ([facility]) Calcium Level 8.5 mg/dL 8.5-10.1 [facility] ([facility]) ID Date Data Source [id number] 11/29/2019 02:02:00 PM EDT [facility] ([facility]) Name Value Range Interpretation Code Description Data Elda rce(s) Supporting Document(s) Ast/Sgot 6 U/L 7-37 [facility] ([place] [facility]) Alt/SGPT 12 U/L 12-78 [facility] ([facility]) Bilirubin,Total 0.3 mg/dL 0.2-1.0 [facility] ([facility]) Bilirubin,Direct Laboratory test result 0.0-0.2 [facility] ([facility]) Alkaline Phosphatase 95 U/L 45-117 [facility] ([facility]) Albumin 3.2 GM/DL 3.2-5.2 [facility] ([place] [facility]) Total Protein 6.8 GM/DL 6.4-8.2 [facility] ([facility]) Albumin/Globulin Ratio 0.89 1.00-1.93 MEDENT ([facility]) ID Date Data Source [id number] 11/29/2019 02:02:00 PM EDT MEDENT ([facility]) Name Value Range Interpretation Code Description Data Elda rce(s) Supporting Document(s) White Blood Count 14.9 10 4.0-10.0 MEDENT ([facility]) Red Blood Count 3.81 10 4.00-5.40 MEDENT ([facility]) Hemoglobin 11.8 g/dL 12.0-15.5 [facility] Mean Corpuscular Hemoglobin 31.0 pg 27.0-33.0 ME DENT ([facility]) Mean Corpuscular Volume 98.2 fl 80.0-96.0 MEDENT ([facility]) Hematocrit 37.4 % 36.0-47.0 [facility]) Platelet Count, Automated 361 10 150-450 MEDE NT ([facility]) Mean Corpuscular HGB Conc 31.6 g/dL 32.0-36.5 MEDE NT ([facility]) Red Cell Distribution Width 14.2 % 11.5-14.5 ME DENT ([facility]) Eos % 4.2 % 0.0-3.0 [facility]) Lymph % 22.1 % 24.0-44.0 [facility]) Neutrophils % 67.4 % 36.0-66.0 MED[facility] ([facility] Murray % 5.2 % 0.0-5.0 [facility]) Baso % 0.5 % 0.0-1.0 [facility]) Immature Granulocyte % 0.6 % 0-3.0 MEDENT ([facility]) Nucleated Red Blood Cell % 0.0 % 0-0 MED ENT ([facility]) Murray # 0.8 10 0.0-0.8 [facility]) Neutrophils # 10.0 10 1.5-8.5 [facility] ([facility]) Lymph # 3.3 10 1.5-5.0 [facility]) Eos # 0.6 10 0.0-0.5 [facility]) Baso # 0.1 10 0.0-0.2 [facility]) Procedure Vital Signs ID Date Data Source UNK Name Value Range Interpretation Code Description Data Source(s) Body mass index (BMI) [Ratio] 24.8 kg/m2 24.8 k g/m2 [facility]) Body height 63 [in_i] 63 [in_i] [facility]) 5'3" Body weight 140.00 [lb_av] 140.00 [lb_av] MEDEN T ([facility]) Body temperature 98.4 [degF] 98.4 [degF] [facility] Oxygen saturation in Arterial blood by Pulse oximetry 97 % 97 % [facility]) Respiratory rate 16 /min 16 /min [facility] ( [facility]) Heart rate 74 /min 74 /min [facility] ([facility], [facility]) Diastolic blood pressure 81 mm[Hg] 81 mm[Hg] [facility] ([facility]) Systolic blood pressure 133 mm[Hg] 133 mm[Hg] [facility] Body mass index (BMI) [Ratio] 25.8 kg/m2 25.8 k g/m2 MEDENT ([facility]) Body weight 142.00 [lb_av] 142.00 [lb_av] MEDEN T ([facility]) Body height 62.25 [in_i] 62.25 [in_i] [facility] 5'2.25" Heart rate 58 /min 58 /min [facility]) Diastolic blood pressure 64 mm[Hg] 64 mm[Hg] [facility]) Systolic blood pressure 108 mm[Hg] 108 mm[Hg] [facility] ([facility]) Body mass index (BMI) [Ratio] 27.9 kg/m2 27.9 k g/m2 MEDENT ([facility]) Oxygen saturation in Arterial blood by Pulse oximetry 95 % 95 % [facility]) Air Body weight 154.00 [lb_av] 154.00 [lb_av] MEDEN T ([facility]) Body height 62.25 [in_i] 62.25 [in_i] [facility] ([facility] 5'2.25" Heart rate 68 /min 68 /min NATHAN ([facility]) Diastolic blood pressure 70 mm[Hg] 70 mm[Hg] NATHAN ([facility]) Systolic blood pressure 140 mm[Hg] 140 mm[Hg] Kathrine GREGORY ([facility])
[2020-09-25] MEDS ORDERED: NS 1,000 ML IV SCH (16:57)
[2020-09-25] MEDS ORDERED: GI COCKTAIL 50ML BTL(HYOSCYAMINE/MAALOX/LIDOCAINE VISCOUS)(1:3:1) PO ONE (17:00)
[2020-09-25] MEDS ORDERED: ASPIRIN 81 MG CHEW TABLET PO ONE (17:00)
--- NOTE | 2020-09-25 17:08 | REP ---
INDICATION: CHEST PAIN COMPARISON: 05/19/2017 TECHNIQUE: Portable AP view of the chest FINDINGS: The mediastinum and cardiac silhouette are stable and within normal limits for portable technique. The lung greer are clear without acute consolidation, effusion, or pneumothorax. Skeletal structures are intact. IMPRESSION: No acute cardiopulmonary process appreciated. <Electronically signed by Fer Luo > 09/25/20 [id number]
[2020-09-25 17:13] LABS: BASO % 0.3 % (0.0-1.0); EOS # 0.3 10^3/uL (0.0-0.5); EOS % 2.5 % (0.0-3.0); HEMOGLOBIN 13.9 g/dl (12.0-15.5); LYMPH # 2.8 10^3/uL (1.5-5.0); LYMPH % 28.3 % (24.0-44.0); MEAN CORPUSCULAR HEMOGLOBIN 30.3 pg (27.0-33.0); MEAN CORPUSCULAR HGB CONC 32.3 g/dl (32.0-36.5); MEAN CORPUSCULAR VOLUME 93.9 fl (80.0-96.0); MONO # 0.6 10^3/uL (0.0-0.8); NEUTROPHILS # 6.2 10^3/uL (1.5-8.5); NEUTROPHILS % 62.6 % (36.0-66.0); PLATELET COUNT, AUTOMATED 200 10^3/uL (150-450); RED BLOOD COUNT 4.58 10^6/uL (4.00-5.40); WHITE BLOOD COUNT 9.9 10^3/uL (4.0-10.0)
--- OUTSIDE RECORDS SUMMARY | 2020-09-25 17:16 | CCD ---
Author Author [facility] Organization [facility] Address Unknown Phone Unavailable Care Team Providers Care Precision Dancer Name Role Phone Everardo, Namrata DO Unavailable [...] Everardo, Namrata DO Unavailable Unavailable Juan, Ericka PSYCHIATRY PHYSICIAN Unavailable Unavailable Juan, Ericka PSYCHIATRY PHYSICIAN Unavailable Unavailable Juan, Ericka PSYCHIATRY PHYSICIAN Unavailable Unavailable Juan, Ericka PSYCHIATRY PHYSICIAN Unavailable Unavailable Juan, Ericka PSYCHIATRY PHYSICIAN Unavailable Unavailable Juan, Ericka PSYCHIATRY PHYSICIAN Unavailable Unavailable Juan, Ericka PSYCHIATRY PHYSICIAN Unavailable Unavailable Juan, Ericka PSYCHIATRY PHYSICIAN Unavailable Unavailable Juan, Ericka PSYCHIATRY PHYSICIAN Unavailable Unavailable Juan, Ericka PSYCHIATRY PHYSICIAN Unavailable Unavailable Juan, Ericka PSYCHIATRY PHYSICIAN Unavailable Unavailable Re-disclosure Warning The records that [...] is protected by Article 27-F of the [facility] Public Health law. If you continue you may have access to information: Regarding HIV / AIDS; Provided by facilities licensed or operated by the [facility] Office of Mental Health; or Provided by the [facility] Office for People With Developmental Disabilities. If such information is present, then the following [facility] mandated warning applies: This information has [...] law may result in a fine or retirement sentence or both. A general authorization for the release of medical or other information is NOT sufficient authorization for further disc losure. Family History Family Member Name Family Member Gender Family Member Status Date o f Status Description Data Source(s) Unknown Male Problem MEDENT ([facility]) Unknown Male Problem MEDENT ([facility]) Unknown Male Problem [facility] ([facility]) Encounters Encounter Providers Location Date Indications Data Source(s ) Outpatient Attender: Ericka sung 07/01/2020 04:20:00 PM EST MED[facility] ([facility] Outpatient Attender: Namrata Youngblood 03/04 02:45:00 PM EDT MEDENT ([facility] ) Outpatient Attender: Namrata Youngblood 11/29 01:15:00 PM EDT MEDENT ([facility] ) Medications Medication Brand Name Start [...] CAPSULE BY MOUTH AT BEDTIME SOLD: 07/31/2020 [facility] 300 mg 01/25/2020 12:00:00 AM EDT capsule 30 TAKE ONE CAPSULE BY MOUTH AT BEDTIME TAKE ONE CAPSULE BY MOUTH AT BEDTIME SOLD: 02/21/2020 [facility] PPD 01/17/2020 12:00:00 AM EDT [facility] Medication administered onsite 5-325 mg 12/29/2019 [...] 12/19/2019 12:00:00 AM EDT ORAL active [facility] 600 mg 12/11/2019 12:00:00 [...] 11/30/2019 12:00:00 AM EDT ORAL active MEDENT ([facility]) 875-125 mg 11/29/2019 12:00:00 AM EDT [...] type / Coverage type Policy ID Covered democrat ID Covered democrat's relationship to gonzalez Policy Gonzalez Plan Information [facility] O [id number] S [id number] [facility] COMMUNITY PLAN MCDO [id number] SP [id number] [facility] [id number] SP [id number] [facility] Community Plan Commercial [id number] Self [id number] [facility] Community Plan Commercial [id number] Self [id number] Medicaid Medigap Part B [id number] Self [id number] DO Not Use (Now #114) Commercial [id number] Family Dependent [id number] [facility] Community Warren/Ess PLS Commercial [id number] Self [id number] [facility] Community Plan Commercial [id number] Self [id number] [facility] Community Plan Commercial [id number] Self [id number] [facility] Community Plan Commercial [id number] Self [id number] Medicaid Medigap Part B [id number] Self [id number] DO Not Use (Now #114) Commercial [id number] Family Dependent [id number] ANSI-Medicaid [id number] [facility] Community Plan Commercial [id number] Self [id number] [facility] Community Plan Commercial [id number] Self [id number] [facility] Plan Commercial [id number] Self [id number] Medicaid Medigap Part B [id number] Self [id number] DO Not Use (Now #114) Commercial [id number] Family Dependent [id number] [facility] Plan Commercial [id number] Self [id number] ANSI-Medicaid [id number] ANSI-Medicaid [id number] Medicaid Medigap Part B [id number] Self [id number] DO Not Use (Now #114) Commercial [id number] Family Dependent [id number] Medicaid Medigap Part B [id number] Self [id number] DO Not Use (Now #114) Commercial [id number] Family Dependent [id number] [facility] Community Plan Commercial [id number] Self [id number] Medicaid Medigap Part B [id number] Self [id number] DO Not Use (Now #114) Commercial [id number] Family Dependent [id number] MEDICAID [id number] SP [id number] Medicaid Medigap Part B [id number] Self [id number] [employer] Commercial [id number] Family Dependent [id number] Medicaid Medigap Part B [id number] Self [id number] [employer] Commercial [id number] Family Dependent [id number] Medicaid Medigap Part B [id number] Self [id number] [employer] Commercial [id number] Family Dependent [id number] [facility] Community Warren/Ess PLS Commercial [id number] Self [id number] Medicaid Medigap Part B [id number] Self [id number] [employer] Commercial [id number] Family Dependent [id number] Medicaid Medigap Part B [id number] Self [id number] [employer] Commercial [id number] Family Dependent [id number] [employer] COMMUNITY PLAN MCDHMO [id number] SP [id number] [facility] Warren/Ess PLS Commercial [id number] Self [id number] Medicaid Medigap Part B 1 1 Self 1 1 [employer] Commercial Family Dependent [employer] COMMUNITY PLAN MCDHMO [id number] SP [id number] SELF PAY ONLY [id number] SP [id number] [facility] COMMUNITY PLAN MCDHMO [id number] SP [id number] [facility] Community Plan Commercial Self [facility]-Community Plan-Warren Commercial Self [facility]-Community Plan-Warren Commercial Self [facility] [id number] [facility] [id number] Results ID Date Data Source [id number] 03/04/2020 12:00:00 AM EDT [facility] Namrata Mcgee DO Patient Name: DEISY [id number] [facility] Date of : 1980[place] [address] Date of Exam: [facility]2020[facility] [id number] Fax: [phone] EXAM: SHOULDER (COMPLETE-MINIMUM 2 VIEWS) [...] rce(s) Supporting Document(s) ID Date Data Source [id number] 03/04/2020 12:00:00 AM EDT [facility] Namrata Mcgee DO Patient Name: SERGO [id number] [facility] Date of : 1980[address] Date of Exam: [facility]/2020[facility] [id number][facility] Fax: [phone] EXAM: FOREARM LEFT X-RAYCLINICAL INFORMATION: [...] rce(s) Supporting Document(s) ID Date Data Source [id number] 03/04/2020 12:00:00 AM EDT [facility] Namrata Mcgee DO Patient Name: SERGO [id number] [facility] Date of : 1980[address] Date of Exam: 03/04/2020[place] [id number]#: Fax: [phone] EXAM: HUMERUS LEFT X-RAYCLINICAL INFORMATION: [...] rce(s) Supporting Document(s) ID Date Data Source [id number] 11/30/2019 01:45:00 PM EDT MEDALEM ([facility]) Name Value Range Interpretation Code Description Data Elda rce(s) Supporting Document(s) Erythrocyte sedimentation rate by Sebastianergren method 25 mm/hr 0-15 [facility] Natriuretic peptide B [Mass/volume] in Serum or Plasma 16.9 pg/mL 0.0 -100.0 [facility] [facility] ID Date Data Source [id number] 11/29/2019 02:02:00 PM EDT [facility] Name Value Range Interpretation Code Description Data Elda rce(s) Supporting Document(s) C reactive protein [Mass/volume] in Serum or Plasma by High sensitivity method 0.52 mg/dL 0.00-0.30 [facility] [facility] ID Date Data Source [id number] 11/29/2019 02:02:00 PM EDT [facility] Name Value Range Interpretation Code Description Data Elda rce(s) Supporting Document(s) Thyrotropin [Units/volume] in Serum or Plasma by Detec tion limit <= 0.05 mIU/L 1.590 uIU/ML 0.358-3.740 [facility] [facility] ID Date Data Source [id number] 11/29/2019 02:02:00 PM EDT [facility] Name Value Range Interpretation Code Description Data Elda rce(s) Supporting Document(s) Blood Urea Nitrogen 3 mg/dL 7-18 MEDENT ([facility]) Glucose, Fasting 93 mg/dL 70-100 [facility] Creatinine For GFR 0.84 mg/dL 0.55-1.30 [facility] Sodium Level 142 meq/L 136-145 [facility] ([place] [facility] Glomerular Filtration Rate Laboratory test result [facility] ([facility]) <content>Units are mL/min/1.73 m2</content>
<content></content>
<content>Chronic Kidney Disease Staging per NKF:</content>
<content></content>
<content>Stage I & II GFR >=60 Normal to Mildly Decreased</content>
<content>Stage III GFR 30- 59 Moderately Decreased</content>
<content>Stage IV GFR 15-29 Severely Decreased</content>
<content>Stage V GFR <15 Very Little GFR Left</content>
<content>ESRD GFR <15 on [employer] DEVELOPMENT MANAGER</content>
<content></content> Chloride Level 107 meq/L 98-107 MEDENT ([facility]) Carbon Dioxide Level 30 meq/L 21-32 MED[facility] ([facility]) Anion Gap 5 meq/L 8-16 [facility] ([place] [facility] Potassium Serum 3.6 meq/L 3.5-5.1 [facility] ([facility]) Calcium Level 8.5 mg/dL 8.5-10.1 MED[facility] ([facility]) ID Date Data Source [id number] 11/29/2019 02:02:00 PM EDT MEDENT ([facility]) Name Value Range Interpretation Code Description Data Elda rce(s) Supporting Document(s) Ast/Sgot 6 U/L 7-37 [facility] ([place] [facility] Alt/SGPT 12 U/L 12-78 MEDENT ([facility]) Bilirubin,Total 0.3 mg/dL 0.2-1.0 MED[facility] ([facility]) Bilirubin,Direct Laboratory test result 0.0-0.2 MED[facility] ([facility]) Alkaline Phosphatase 95 U/L 45-117 MEDENT ([facility]) Albumin 3.2 GM/DL 3.2-5.2 [facility] ([place] [facility]) Total Protein 6.8 GM/DL 6.4-8.2 MED[facility] ([facility]) Albumin/Globulin Ratio 0.89 1.00-1.93 MED[facility] ([facility] [place] [facility]) ID Date Data Source [id number] 11/29/2019 02:02:00 PM EDT MEDENT ([facility]) Name Value Range Interpretation Code Description Data Elda rce(s) Supporting Document(s) White Blood Count 14.9 10 4.0-10.0 MEDENT ([facility]) Red Blood Count 3.81 10 4.00-5.40 MEDENT ([facility]) Hemoglobin 11.8 g/dL 12.0-15.5 [facility] ([place] [facility] Mean Corpuscular Hemoglobin 31.0 pg 27.0-33.0 ME DENT ([facility] [facility]) Mean Corpuscular Volume 98.2 fl 80.0-96.0 MEDENT ([facility] [place] [facility]) Hematocrit 37.4 % 36.0-47.0 [facility] ([place] [facility]) Platelet Count, Automated 361 10 150-450 MEDE NT ([facility] [place] [facility]) Mean Corpuscular HGB Conc 31.6 g/dL 32.0-36.5 MEDE NT ([facility] [facility]) Red Cell Distribution Width 14.2 % 11.5-14.5 ME DENT ([place] [facility]) Eos % 4.2 % 0.0-3.0 [facility] ([place] [facility]) Lymph % 22.1 % 24.0-44.0 [facility] ([place] [facility]) Neutrophils % 67.4 % 36.0-66.0 [facility] ([facility]) [place] % 5.2 % 0.0-5.0 [facility] ([place] [facility]) Baso % 0.5 % 0.0-1.0 [facility] ([place] [facility]) Immature Granulocyte % 0.6 % 0-3.0 MEDENT ([facility] [facility]) Nucleated Red Blood Cell % 0.0 % 0-0 MED ENT ([facility] [place] [facility]) [place] # 0.8 10 0.0-0.8 [facility] ([place] [facility]) Neutrophils # 10.0 10 1.5-8.5 [facility]) Lymph # 3.3 10 1.5-5.0 [facility] ([place] [facility]) Eos # 0.6 10 0.0-0.5 [facility] ([place] [facility]) Baso # 0.1 10 0.0-0.2 [facility] ([place] [facility]) Procedure Vital Signs ID Date Data Source UNK Name Value Range Interpretation Code Description Data Source(s) Body mass index (BMI) [Ratio] 24.8 kg/m2 24.8 k g/m2 [facility] Body height 63 [in_i] 63 [in_i] [facility]) 5'3" Body weight 140.00 [lb_av] 140.00 [lb_av] MEDEN T ([facility]) Body temperature 98.4 [degF] 98.4 [degF] [facility]) Oxygen saturation in Arterial blood by Pulse oximetry 97 % 97 % [facility] ([facility]) Respiratory rate 16 /min 16 /min [facility] ( [facility]) Heart rate 74 /min 74 /min [facility] ([facility]) Diastolic blood pressure 81 mm[Hg] 81 mm[Hg] [facility] ([facility]) Systolic blood pressure 133 mm[Hg] 133 mm[facility]Hg] [facility] [facility] Body mass index (BMI) [Ratio] 25.8 kg/m2 25.8 k g/m2 MED[facility] ([facility] [place] [facility]) Body weight 142.00 [lb_av] 142.00 [lb_av] MEDEN T ([facility] [place] [facility]) Body height 62.25 [in_i] 62.25 [in_i] [facility] 5'2.25" Heart rate 58 /min 58 /min [facility] ([facility]) Diastolic blood pressure 64 mm[Hg] 64 mm[Hg] [facility] ([facility] [facility]) Systolic blood pressure 108 mm[Hg] 108 mm[Hg] [facility] ([place] [facility]) Body mass index (BMI) [Ratio] 27.9 kg/m2 27.9 k g/m2 MEDENT ([facility] [place] [facility]) Oxygen saturation in Arterial blood by Pulse oximetry 95 % 95 % [facility] ([facility] [facility]) Air Body weight 154.00 [lb_av] 154.00 [lb_av] MEDEN T ([facility] [facility]) Body height 62.25 [in_i] 62.25 [in_i] [facility] 5'2.25" Heart rate 68 /min 68 /min NATHAN ([facility]) Diastolic blood pressure 70 mm[Hg] 70 mm[Hg] NATHAN ([facility] [place] [facility]) Systolic blood pressure 140 mm[Hg] 140 mm[Hg] Kathrine GREGORY ([place] [facility])
[2020-09-25 17:34] LABS: ALBUMIN 3.7 GM/DL (3.2-5.2); BILIRUBIN,DIRECT 0.2 MG/DL (0.0-0.2); BILIRUBIN,TOTAL 0.4 MG/DL (0.2-1.0); TOTAL PROTEIN 7.1 GM/DL (6.4-8.2)
[2020-09-25 17:40] LABS: INR 0.95; PROTHROMBIN TIME 12.9 SECONDS (12.5-14.3)
[2020-09-25 17:49] LABS: BLOOD UREA NITROGEN 5 MG/DL (7-18); CALCIUM LEVEL 8.7 MG/DL (8.5-10.1); CARBON DIOXIDE LEVEL 32 MEQ/L (21-32); CHLORIDE LEVEL 105 MEQ/L (98-107); CK-MB VALUE MASS < 1.0 NG/ML (<3.6); CPK CREATINE PHOSPHOKINASE 48 U/L (26-192); CREATININE FOR GFR 0.74 MG/DL (0.55-1.30); GLOMERULAR FILTRATION RATE > 60.0 (>60); GLUCOSE, FASTING 91 MG/DL (70-100); MB/CK RELATIVE INDEX 2.08 (< OR =4); NT-PRO BNP 92 PG/ML (<125); SODIUM LEVEL 139 MEQ/L (136-145); TROPONIN I < 0.02 NG/ML (< 0.10)
[2020-09-25 18:45] VITALS: BP 133/63
--- NOTE | 2020-09-26 07:41 | ECGEPIP ---
[facility] - ED Test Date: 2020-09-25 Pat Name: SERGO SCHAEFFER Department: Room: - Gender: Female Mesh Man: adilene : 1980 Requested By: WINSTON Aguilar Order Number: [id number] Reading MD: Leti Alcantara Measurements Intervals [place] Rate: 47 P: 43 MA: 160 QRS: 91 QRSD: 120 T: 51 QT: 470 QTc: 415 Interpretive Statements Sinus bradycardia Rightward axis Cannot rule out Anterior infarct , age undetermined RBBB DECREASED RATE 06/09/18 Electronically Signed on 09-26-2020 7:40:41 EST by Leti Alcantara
== END 2020-09-25 19:27 | disposition left against medical advice (07) ==
LOC: M ED 16:31
DX: R07.89 Other chest pain (principal); J45.909 Unspecified asthma, uncomplicated; I25.10 Atherosclerotic heart disease of native coronary artery without angina pectoris; Z79.899 Other long term (current) drug therapy; Z91.040 Latex allergy status; F17.210 Nicotine dependence, cigarettes, uncomplicated

== ENCOUNTER 2021-01-11 23:22 | Emergency (ER) | payer OTHER ==
[~2021-01-11] VITALS: Ht 160 cm; Wt 65.0 kg
[~2021-01-11 23:22] MED LIST changes: +GABA-283 PO; -GABA-845 PO
[2021-01-12] MEDS ORDERED: NAPR-837 PO (02:33)
[2021-01-12 02:47] VITALS: BP 132/63
--- NOTE | 2021-01-12 03:59 | REPVR ---
PROCEDURE INFORMATION: Exam: XR Right Finger(s) Exam date and time: 01/12/2021 1:53 AM Age: 40 years old Clinical indication: Other: Injury TECHNIQUE: Imaging protocol: XR Right fingers. Views: Minimum 2 views. COMPARISON: CR WRIST COMPLETE 07/01/2020 6:24 PM FINDINGS: Bones/joints: No fracture or dislocation. Soft tissues: Slight soft tissue swelling about the PIP joint. IMPRESSION: 1. Slight soft tissue swelling about the PIP joint. 2. Otherwise negative right 5th finger. Electronically signed by: Gael Gray On 01/12/2021 03:59:30 AM
== END 2021-01-12 02:48 | disposition home or self-care (01) ==
LOC: M ED 23:22
DX: S69.91XA Unspecified injury of right wrist, hand and finger(s), initial encounter (principal); X58.XXXA Exposure to other specified factors, initial encounter; Y92.89 Other specified places as the place of occurrence of the external cause; M65.28 Calcific tendinitis, other site; J45.909 Unspecified asthma, uncomplicated; F33.9 Major depressive disorder, recurrent, unspecified; F41.9 Anxiety disorder, unspecified; N80.9 Endometriosis, unspecified; Z79.899 Other long term (current) drug therapy; F17.210 Nicotine dependence, cigarettes, uncomplicated

== ENCOUNTER → 2021-03-19 | Outpatient (CLI) | payer OTHER ==
--- NOTE | 2021-03-19 13:32 | PFTRPT ---
Site: [facility], [address] [place] [address], [address] ID: [id number] Name: SERGO SCHAEFFER Visit Date: 03/19/2021 Second ID: [id number] Referring Doctor: MD Leonel, jtech Reviewing Doctor: Clive Jacobo MD Book Editor: Abby HARPER RRT Age: 40 : 1980 Sex: Female Race: Height: 63.00 Inches Weight: 136.00 Lbs BSA: 1.64 Order IDs: [id number] Requested Test(s): <RESP-PFT.PFT B/A> Diagnosis: R06.02 test meet the ATS standards for acceptability and repeatability. Pt was given four puffs of albuterol for post bronchodilator. Review Status: Not Reviewed Pre-Bronch Post-Bronch Pred Actual %Pred Actual %Chng SPIROMETRY FVC (L) 3.57 1.71 47 2.17 26 FEV1 (L) 2.91 1.11 38 1.55 39 FEV1/FVC (%) 82 65 79 72 9 FEF 25% (L/sec) 5.34 2.17 40 4.50 107 FEF 50% (L/sec) 4.20 0.72 17 1.83 153 FEF 75% (L/sec) 1.66 0.26 15 0.88 232 FEF 25-75% (L/sec) 3.06 0.61 19 1.69 177 FEF Max (L/sec) 6.81 3.31 48 4.68 41 FIVC (L) 1.74 2.06 18 FIF 50% (L/sec) 3.73 3.00 80 4.32 43 FIF Max (L/sec) 3.01 4.34 44 MVV (L/min) 101 37 37 Expiratory Time (sec) 6.79 6.82 Back Extrap Vol (L) 0.05 0.06 23 Time To FEFmax (sec) 0.072 0.077 6 LUNG VOLUMES SVC (L) 3.36 1.98 58 IC (L) 2.20 1.74 79 ERV (L) 1.16 0.24 20 TGV (L) 2.70 2.73 101 RV (Pleth) (L) 1.54 2.49 161 TLC (Pleth) (L) 4.90 4.47 91 RV/TLC (Pleth) (%) 31 56 179 DIFFUSION DLCOunc (ml/min/mmHg) 23.39 13.81 59 DL/VA (ml/min/mmHg/L) 4.77 4.29 89 VA (L) 4.90 3.22 65 BHT (sec) 9.64 IVC (L) 1.92 TLC (SB) (L) 3.37 AIRWAYS RESISTANCE Raw (cmH2O/L/s) 1.86 1.71 91 Gaw (L/s/cmH2O) 1.03 0.60 57 sRaw (cmH2O*s) 4.76 5.00 104 sGaw (1/cmH2O*s) 0.20 0.20 101
== END ==
LOC: M CARPUL 12:59
PROVIDERS: ATTEND Internal Medicine Cardiovascular Disease
DX: R06.02 Shortness of breath (principal); F17.210 Nicotine dependence, cigarettes, uncomplicated

== ENCOUNTER → 2021-08-19 | Outpatient (CLI) | payer OTHER | LOC: M WUC 15:39 | PROVIDERS: ATTEND Physician Assistant | DX: S60.221A Contusion of right hand, initial encounter (principal); S60.211A Contusion of right wrist, initial encounter; Y92.9 Unspecified place or not applicable; Y93.9 Activity, unspecified; Y99.9 Unspecified external cause status ==

== ENCOUNTER 2022-02-03 21:29 | Emergency (ER) | payer OTHER ==
[~2022-02-03] VITALS: Ht 160 cm; Wt 64.5 kg
[2022-02-03 21:30] VITALS: BP 123/74
== END 2022-02-04 02:55 | disposition left against medical advice (07) ==
LOC: M ED 21:29
DX: Z53.29 Procedure and treatment not carried out because of patient's decision for other reasons (principal)

== ENCOUNTER → 2022-02-11 | Outpatient (CLI) | payer OTHER | LOC: M WUC 15:40 | PROVIDERS: ATTEND Physician Assistant | DX: M25.562 Pain in left knee (principal) ==

== ENCOUNTER 2022-08-24 16:57 | Emergency (ER) | payer OTHER ==
[~2022-08-24] VITALS: Ht 160 cm; Wt 63.6 kg
[2022-08-24 16:58] VITALS: BP 138/74
== END 2022-08-24 18:20 | disposition home or self-care (01) ==
LOC: M ED 18:00
DX: S90.32XA Contusion of left foot, initial encounter (principal); W23.0XXA Caught, crushed, jammed, or pinched between moving objects, initial encounter; J45.909 Unspecified asthma, uncomplicated; F41.9 Anxiety disorder, unspecified; F17.200 Nicotine dependence, unspecified, uncomplicated; Y92.009 Unspecified place in unspecified non-institutional (private) residence as the place of occurrence of the external cause; Y93.9 Activity, unspecified; Y99.9 Unspecified external cause status; Z79.891 Long term (current) use of opiate analgesic; Z79.899 Other long term (current) drug therapy

== ENCOUNTER 2023-02-05 13:55 | Emergency (ER) | payer OTHER ==
[~2023-02-05] VITALS: Ht 160 cm; Wt 67.7 kg
[2023-02-05 13:55] VITALS: BP 140/84; TEMP 97.1; O2SAT 98
[2023-02-05] MEDS ORDERED: IBUPROFEN 600MG TAB PO ONE (14:55)
== END 2023-02-05 15:47 | disposition left against medical advice (07) ==
LOC: M ED 13:55
DX: Z53.21 Procedure and treatment not carried out due to patient leaving prior to being seen by health care provider (principal)

== ENCOUNTER → 2023-03-03 | Outpatient (CLI) | payer OTHER | LOC: M RAD 11:13 | PROVIDERS: ATTEND Physician Assistant Surgical | DX: S92.412A Displaced fracture of proximal phalanx of left great toe, initial encounter for closed fracture (principal) ==

== ENCOUNTER → 2023-09-13 | Outpatient (REF) | payer OTHER ==
[~2023-09-13] MED LIST changes: -GABA-283 PO; +GABA-284 PO
== END ==
LOC: M LAB REF 16:17
PROVIDERS: ATTEND Nurse Practitioner Family
DX: R30.0 Dysuria (principal)

== ENCOUNTER → 2023-09-14 | Outpatient (CLI) | payer OTHER | LOC: M RAD 11:21 | PROVIDERS: ATTEND Nurse Practitioner Family | DX: M25.551 Pain in right hip (principal); M54.50 Low back pain, unspecified ==

== ENCOUNTER 2023-10-31 23:28 | Emergency (ER) | payer OTHER ==
[~2023-10-31] VITALS: Ht 160 cm; Wt 62.1 kg
[2023-10-31 23:29] VITALS: BP 156/65; TEMP 97.1; O2SAT 99
[2023-11-01 00:53] LABS: BASO # 0.1 10^3/uL (0.0-0.2); BASO % 0.6 % (0.0-1.0); EOS # 0.1 10^3/uL (0.0-0.5); EOS % 1.4 % (0.0-3.0); HEMATOCRIT 40.4 % (36.0-47.0); HEMOGLOBIN 12.9 g/dl (12.0-15.5); LYMPH # 4.1 10^3/uL (1.5-5.0); LYMPH % 43.1 % (24.0-44.0); MEAN CORPUSCULAR HEMOGLOBIN 29.4 pg (27.0-33.0); MEAN CORPUSCULAR HGB CONC 31.9 g/dl (32.0-36.5); MONO # 0.7 10^3/uL (0.0-0.8); NEUTROPHILS # 4.5 10^3/uL (1.5-8.5); NEUTROPHILS % 47.6 % (36.0-66.0); PLATELET COUNT, AUTOMATED 225 10^3/uL (150-450); RED BLOOD COUNT 4.39 10^6/uL (4.00-5.40); WHITE BLOOD COUNT 9.5 10^3/uL (4.0-10.0)
[2023-11-01 01:21] LABS: CK-MB VALUE MASS < 1.0 NG/ML (<3.6)
[2023-11-01 01:22] LABS: BLOOD UREA NITROGEN 6 MG/DL (9-23); CALCIUM LEVEL 8.3 MG/DL (8.5-10.1); CARBON DIOXIDE LEVEL 30 MMOL/L (20-31); CHLORIDE LEVEL 110 MMOL/L (98-107); CREATININE FOR GFR 0.65 MG/DL (0.55-1.30); GLOMERULAR FILTRATION RATE > 60.0 (>58); GLUCOSE, FASTING 81 MG/DL (60-100); POTASSIUM SERUM 3.6 MMOL/L (3.5-5.1); SODIUM LEVEL 142 MMOL/L (136-145)
[2023-11-01 01:23] LABS: CPK CREATINE PHOSPHOKINASE 39 U/L (34-145); MB/CK RELATIVE INDEX 2.56 (< OR =4)
== END 2023-11-01 01:26 | disposition left against medical advice (07) ==
LOC: M ED 23:28
DX: Z53.21 Procedure and treatment not carried out due to patient leaving prior to being seen by health care provider (principal)

== ENCOUNTER → 2023-11-19 | Outpatient (REF) | payer OTHER ==
[2023-11-19 18:29] LABS: HIV 1&2 SCREEN NEGATIVE (NEGATIVE)
[2023-11-19 18:36] LABS: HEPATITIS C VIRUS ABY INDEX 0.03 INDEX (<0.8)
== END ==
LOC: M LAB REF 17:06
PROVIDERS: ATTEND Nurse Practitioner Family
DX: Z11.9 Encounter for screening for infectious and parasitic diseases, unspecified (principal); R00.1 Bradycardia, unspecified

== ENCOUNTER 2024-06-15 21:08 | Emergency (ER) | payer OTHER ==
[~2024-06-15] VITALS: Ht 157.5 cm; Wt 61.1 kg
[~2024-06-15 21:08] MED LIST changes: +GABA-1172; -GABA-282
[2024-06-15] MEDS: MORPHINE 2 MG/ML 1ML VIAL IV PRN (22:01)
[2024-06-15] MEDS: ACETAMINOPHEN 325 MG TAB PO ONE (22:01)
[2024-06-15 22:06] LABS: BASO # 0.1 10^3/uL (0.0-0.2); BASO % 0.5 % (0.0-1.0); EOS # 0.3 10^3/uL (0.0-0.5); EOS % 2.4 % (0.0-3.0); HEMATOCRIT 38.1 % (36.0-47.0); HEMOGLOBIN 12.4 g/dl (12.0-15.5); LYMPH # 3.4 10^3/uL (1.5-5.0); LYMPH % 28.5 % (24.0-44.0); MEAN CORPUSCULAR HEMOGLOBIN 29.6 pg (27.0-33.0); MEAN CORPUSCULAR HGB CONC 32.5 g/dl (32.0-36.5); MEAN CORPUSCULAR VOLUME 90.9 fl (80.0-96.0); MONO % 8.2 % (2.0-8.0); NEUTROPHILS # 7.1 10^3/uL (1.5-8.5); NEUTROPHILS % 60.1 % (36.0-66.0); PLATELET COUNT, AUTOMATED 387 10^3/uL (150-450); RED BLOOD COUNT 4.19 10^6/uL (4.00-5.40); WHITE BLOOD COUNT 11.8 10^3/uL (4.0-10.0)
[2024-06-15 22:19] LABS: INR 1.01; PARTIAL THROMBOPLASTIN TIME 29.3 SECONDS (24.8-34.2)
[2024-06-15 22:33] LABS: CK-MB VALUE MASS < 1.0 NG/ML (<3.6)
[2024-06-15 22:34] LABS: ALBUMIN 2.9 G/DL (3.2-5.2); ALKALINE PHOSPHATASE 85 U/L (46-116); ALT/SGPT 10 U/L (7.0-40); AST/SGOT 9 U/L (<34); BILIRUBIN,DIRECT < 0.1 MG/DL (<0.4); BILIRUBIN,TOTAL 0.2 MG/DL (0.3-1.2); BLOOD UREA NITROGEN < 5 MG/DL (9-23); CALCIUM LEVEL 8.7 MG/DL (8.5-10.1); CARBON DIOXIDE LEVEL 30 MMOL/L (20-31); CHLORIDE LEVEL 107 MMOL/L (98-107); CPK CREATINE PHOSPHOKINASE 45 U/L (34-145); CREATININE FOR GFR 0.67 MG/DL (0.55-1.30); GLOMERULAR FILTRATION RATE > 60.0 (>58); GLUCOSE, FASTING 102 MG/DL (60-100); MB/CK RELATIVE INDEX 2.22 (< OR =4); POTASSIUM SERUM 3.2 MMOL/L (3.5-5.1); SODIUM LEVEL 140 MMOL/L (136-145); TOTAL PROTEIN 6.8 G/DL (5.7-8.2)
[2024-06-15 22:38] LABS: RSV AMPLIFICATION NEGATIVE (NEGATIVE)
[2024-06-15] MEDS ORDERED: ISOVUE-370 76% 100ML VIAL As Ordered ONE (22:50)
[2024-06-15] MEDS: POTASSIUM CHLORIDE 10MEQ SR TABLET PO ONE (22:51)
[2024-06-15] MEDS: ASPIRIN 81MG CHEW TABLET PO ONE (22:51)
[2024-06-15 23:07] VITALS: TEMP 97.5
[2024-06-15 23:29] LABS: CK-MB VALUE MASS < 1.0 NG/ML (<3.6)
[2024-06-15 23:34] LABS: CPK CREATINE PHOSPHOKINASE 48 U/L (34-145); MB/CK RELATIVE INDEX 2.08 (< OR =4)
[2024-06-16] MEDS ORDERED: PERC5TAB12 PO
[2024-06-16 01:28] LABS: CK-MB VALUE MASS < 1.0 NG/ML (<3.6)
[2024-06-16 01:30] VITALS: BP 129/60; O2SAT 90
[2024-06-16 01:32] LABS: CPK CREATINE PHOSPHOKINASE 34 U/L (34-145); MB/CK RELATIVE INDEX 2.94 (< OR =4)
[2024-06-16] MEDS: OXYCODONE/APAP 5MG/325MG(HOME DOSE PACK) PO ONE (02:13)
== END 2024-06-16 02:14 | disposition home or self-care (01) ==
LOC: M ED 21:08
DX: S22.31XA Fracture of one rib, right side, initial encounter for closed fracture (principal); R91.8 Other nonspecific abnormal finding of lung field; X58.XXXA Exposure to other specified factors, initial encounter; Y92.9 Unspecified place or not applicable; Y93.89 Activity, other specified; Y99.9 Unspecified external cause status; E55.9 Vitamin D deficiency, unspecified; G43.909 Migraine, unspecified, not intractable, without status migrainosus; M79.7 Fibromyalgia; D64.9 Anemia, unspecified; F17.200 Nicotine dependence, unspecified, uncomplicated; Z79.899 Other long term (current) drug therapy; Z91.040 Latex allergy status
CPT/HCPCS: 71101; 71275; 80048; 80076; 82550; 82553; 84484; 85025; 85610; 85730; 87631; 93005; 93041; 94760; 96374; 96376; 99285; Q9967

== ENCOUNTER 2024-06-27 17:28 | Emergency (ER) | payer OTHER ==
[~2024-06-27] VITALS: Ht 160 cm; Wt 57.3 kg
[~2024-06-27 17:28] MED LIST changes: -CYCL5TAB PO; +CYCL5TAB4 PO; -GABA-1172; +GABA-1172 PO; +PERC5TAB12 PO
[2024-06-27 17:38] VITALS: BP 167/80; TEMP 96.6; O2SAT 95
[2024-06-27 20:22] LABS: ETHYL ALCOHOL (ETHANOL) < 0.003 % (0.000-0.010); HCG, SERUM QUALITATIVE NEGATIVE (NEGATIVE)
[2024-06-27 20:24] LABS: ALBUMIN 3.3 G/DL (3.2-5.2); ALKALINE PHOSPHATASE 74 U/L (35-104); ALT/SGPT 10 U/L (7.0-40); AST/SGOT 10 U/L (<34); BILIRUBIN,DIRECT < 0.1 MG/DL (<0.4); BILIRUBIN,TOTAL 0.2 MG/DL (0.3-1.2); BLOOD UREA NITROGEN 6 MG/DL (9-23); CALCIUM LEVEL 9.3 MG/DL (8.5-10.1); CARBON DIOXIDE LEVEL 33 MMOL/L (20-31); CHLORIDE LEVEL 105 MMOL/L (98-107); CREATININE FOR GFR 0.62 MG/DL (0.55-1.30); GLOMERULAR FILTRATION RATE > 60.0 (>58); GLUCOSE, FASTING 98 MG/DL (60-100); POTASSIUM SERUM 3.5 MMOL/L (3.5-5.1); SALICYLATE LEVEL < 3.0 MG/DL (<30); SODIUM LEVEL 141 MMOL/L (136-145); TOTAL PROTEIN 7.1 G/DL (5.7-8.2)
[2024-06-27 20:26] LABS: THYROID STIMULATING HORMONE 4.242 uIU/ML (0.55-4.78)
[2024-06-28] MEDS ORDERED: ALBU10.7 PO (08:07)
[2024-06-28] MEDS ORDERED: ALL10TAB3 PO (08:07)
[2024-06-28] MEDS ORDERED: INCR1INH PO (08:07)
[2024-06-28] MEDS ORDERED: DOXY-440 PO (13:48)
[2024-06-28] MEDS ORDERED: CEFD1CAP9 PO (13:48)
[2024-06-28] MEDS ORDERED: ASPI81TAEC PO (13:48)
[2024-06-28] MEDS ORDERED: ATOR1TAB21 PO (13:48)
[2024-06-28] MEDS ORDERED: TRAZ-252 PO (13:48)
== END 2024-06-27 18:31 | disposition left against medical advice (07) ==
LOC: M ED 17:28
DX: Z53.21 Procedure and treatment not carried out due to patient leaving prior to being seen by health care provider (principal)

== ENCOUNTER 2024-06-27 18:55 | Inpatient (IN) | payer MEDICAID, OTHER ==
[~2024-06-27] VITALS: Ht 160 cm; Wt 60.8 kg
[2024-06-27 19:54] LABS: AMPHETAMINES LEVEL URINE NEGATIVE (NEGATIVE); BARBITURATES URINE NEGATIVE (NEGATIVE); BENZODIAZEPINES URINE NEGATIVE (NEGATIVE)
[2024-06-27 19:55] LABS: CANNABINOIDS URINE NEGATIVE (NEGATIVE); COCAINE METABOLITE URINE NEGATIVE (NEGATIVE); METHADONE URINE NEGATIVE (NEGATIVE); PHENCYCLIDINE URINE NEGATIVE (NEGATIVE)
[2024-06-27 19:57] LABS: OPIATES URINE POSITIVE (NEGATIVE)
[2024-06-27 20:02] LABS: HEMATOCRIT 39.9 % (36.0-47.0); HEMOGLOBIN 12.9 g/dl (12.0-15.5); MEAN CORPUSCULAR HEMOGLOBIN 29.3 pg (27.0-33.0); MEAN CORPUSCULAR HGB CONC 32.3 g/dl (32.0-36.5); MEAN CORPUSCULAR VOLUME 90.5 fl (80.0-96.0); PLATELET COUNT, AUTOMATED 268 10^3/uL (150-450); RED BLOOD COUNT 4.41 10^6/uL (4.00-5.40)
[2024-06-27 20:34] LABS: HCG, SERUM QUALITATIVE NEGATIVE (NEGATIVE)
[2024-06-27 20:46] LABS: ETHYL ALCOHOL (ETHANOL) < 0.003 % (0.000-0.010)
[2024-06-27 20:48] LABS: ALBUMIN 3.3 G/DL (3.2-5.2); ALKALINE PHOSPHATASE 74 U/L (35-104); ALT/SGPT 10 U/L (7.0-40); AST/SGOT 10 U/L (<34); BILIRUBIN,DIRECT < 0.1 MG/DL (<0.4); BILIRUBIN,TOTAL 0.2 MG/DL (0.3-1.2); BLOOD UREA NITROGEN 5 MG/DL (9-23); CALCIUM LEVEL 9.7 MG/DL (8.5-10.1); CARBON DIOXIDE LEVEL 33 MMOL/L (20-31); CHLORIDE LEVEL 105 MMOL/L (98-107); CREATININE FOR GFR 0.61 MG/DL (0.55-1.30); GLOMERULAR FILTRATION RATE > 60.0 (>58); GLUCOSE, FASTING 98 MG/DL (60-100); POTASSIUM SERUM 3.5 MMOL/L (3.5-5.1); SALICYLATE LEVEL < 3.0 MG/DL (<30); SODIUM LEVEL 141 MMOL/L (136-145)
[2024-06-27 20:49] LABS: THYROID STIMULATING HORMONE 4.301 uIU/ML (0.55-4.78)
[2024-06-27] MEDS ORDERED: MOM 30ML SUSPENSION UDC PO PRN (22:00)
[2024-06-27] MEDS ORDERED: MAALOX 30 ML SUSP *UDC PO PRN (22:00)
[2024-06-27] MEDS ORDERED: ACETAMINOPHEN 325 MG TAB PO PRN (22:00)
[2024-06-27] MEDS ORDERED: diphenhydrAMINE 25MG CAP PO PRN (22:00)
[2024-06-27] MEDS ORDERED: IBUPROFEN 400MG TAB PO PRN (22:00)
[2024-06-27] MEDS ORDERED: traZODone 50 MG TAB PO PRN (22:00)
[2024-06-28] MEDS ORDERED: ISOVUE-370 76% 100ML VIAL As Ordered ONE (00:02)
[2024-06-28 00:25] LABS: BASO # 0.1 10^3/uL (0.0-0.2); BASO % 0.7 % (0.0-1.0); EOS # 0.1 10^3/uL (0.0-0.5); EOS % 0.8 % (0.0-3.0); HEMATOCRIT 39.7 % (36.0-47.0); HEMOGLOBIN 12.9 g/dl (12.0-15.5); LYMPH # 3.3 10^3/uL (1.5-5.0); LYMPH % 24.1 % (24.0-44.0); MEAN CORPUSCULAR HEMOGLOBIN 29.7 pg (27.0-33.0); MEAN CORPUSCULAR HGB CONC 32.5 g/dl (32.0-36.5); MEAN CORPUSCULAR VOLUME 91.5 fl (80.0-96.0); MONO # 0.9 10^3/uL (0.0-0.8); MONO % 6.7 % (2.0-8.0); NEUTROPHILS # 9.2 10^3/uL (1.5-8.5); NEUTROPHILS % 67.2 % (36.0-66.0); PLATELET COUNT, AUTOMATED 253 10^3/uL (150-450); RED BLOOD COUNT 4.34 10^6/uL (4.00-5.40); WHITE BLOOD COUNT 13.6 10^3/uL (4.0-10.0)
[2024-06-28 00:39] VITALS: BP 163/93; TEMP 97.2; O2SAT 95
[2024-06-28 00:49] LABS: CK-MB VALUE MASS 1.1 NG/ML (<3.6)
[2024-06-28] MEDS ORDERED: NICOTINE POLACRILEX 2 MG GUM PO PRN (00:55)
[2024-06-28 01:00] LABS: MAGNESIUM LEVEL 1.9 MG/DL (1.8-2.4); MB/CK RELATIVE INDEX 1.89 (< OR =4)
[2024-06-28 02:11] LABS: CK-MB VALUE MASS 1.1 NG/ML (<3.6)
[2024-06-28 02:12] LABS: MB/CK RELATIVE INDEX 2.39 (< OR =4)
[2024-06-28 03:41] LABS: CK-MB VALUE MASS 1.1 NG/ML (<3.6); MB/CK RELATIVE INDEX 2.2 (< OR =4)
[2024-06-28] MEDS ORDERED: ASPIRIN 81MG CHEW TABLET PO STA (06:08)
[2024-06-28 06:58] LABS: INR 0.97; PARTIAL THROMBOPLASTIN TIME 28.7 SECONDS (24.8-34.2); PROTHROMBIN TIME 13.2 SECONDS (12.5-14.5)
[2024-06-28] MEDS ORDERED: INCR1INH PO (08:07)
[2024-06-28] MEDS ORDERED: ALBU10.7 PO (08:07)
[2024-06-28] MEDS ORDERED: ALL10TAB3 PO (08:07)
[2024-06-28] MEDS ORDERED: ENOXAPARIN 40MG/0.4ML SYRINGE (J1650 PER 10MG) SC SCH (09:00)
[2024-06-28] MEDS ORDERED: ASPI81TAEC PO (13:48)
[2024-06-28] MEDS ORDERED: DOXY-440 PO (13:48)
[2024-06-28] MEDS ORDERED: TRAZ-252 PO (13:48)
[2024-06-28] MEDS ORDERED: ATOR1TAB21 PO (13:48)
[2024-06-28] MEDS ORDERED: CEFD1CAP9 PO (13:48)
[2024-06-29] MEDS ORDERED: ASPIRIN 81MG CHEW TABLET PO SCH (09:00)
== END 2024-06-28 09:53 | DRG 203 ==
LOC: M ED 18:55 → M ED INP 21:56
PROVIDERS: ADMIT Psychiatry & Neurology Psychiatry; ATTEND Psychiatry & Neurology Psychiatry
DX: R07.89 Other chest pain (principal); F32.A Depression, unspecified; F17.210 Nicotine dependence, cigarettes, uncomplicated; R05.3 Chronic cough; J45.909 Unspecified asthma, uncomplicated; R51.9 Headache, unspecified; F41.9 Anxiety disorder, unspecified; Z91.040 Latex allergy status; Z79.899 Other long term (current) drug therapy; Z79.82 Long term (current) use of aspirin; Z63.6 Dependent relative needing care at home

== ENCOUNTER 2024-06-28 06:33 | Observation (INO) | payer OTHER ==
[~2024-06-28] VITALS: Ht 160 cm; Wt 60.8 kg
[2024-06-28] MEDS ORDERED: HOME MED LIST COMPLETE! XX SCH (08:05)
[2024-06-28] MEDS ORDERED: ALL10TAB3 PO (08:07)
[2024-06-28] MEDS ORDERED: ALBU10.7 PO (08:07)
[2024-06-28] MEDS ORDERED: INCR1INH PO (08:07)
[2024-06-28] MEDS: CETIRIZINE (ZyrTEC) 10 MG TAB PO SCH (09:00)
[2024-06-28] MEDS: ENOXAPARIN 40MG/0.4ML SYRINGE (J1650 PER 10MG) SC SCH (09:00)
[2024-06-28] MEDS: ASPIRIN 81MG ENTERIC TABLET PO SCH (09:00)
[2024-06-28] MEDS ORDERED: ACETAMINOPHEN 325 MG TAB PO PRN (09:35)
[2024-06-28] MEDS ORDERED: diphenhydrAMINE 25MG CAP PO PRN (09:40)
[2024-06-28] MEDS ORDERED: NICOTINE POLACRILEX 2 MG GUM PO PRN (09:40)
[2024-06-28] MEDS ORDERED: traZODone 50 MG TAB PO PRN (09:40)
[2024-06-28] MEDS ORDERED: ASPI81TAEC PO (13:48)
[2024-06-28] MEDS ORDERED: ATOR1TAB21 PO (13:48)
[2024-06-28] MEDS ORDERED: CEFD1CAP9 PO (13:48)
[2024-06-28] MEDS ORDERED: TRAZ-252 PO (13:48)
[2024-06-28] MEDS ORDERED: DOXY-440 PO (13:48)
[2024-06-28 14:31] VITALS: BP 145/74; TEMP 97.8; O2SAT 97
[2024-06-28] MEDS ORDERED: GABAPENTIN 300 MG CAP PO SCH (21:00)
[2024-06-28] MEDS ORDERED: FLUoxetine 20MG CAP PO SCH (21:00)
[2024-06-28] MEDS ORDERED: ATORVASTATIN 20 MG TAB PO SCH (21:00)
== END 2024-06-28 14:32 | disposition home or self-care (01) ==
LOC: M ED 06:33 → M ED INP 09:35
PROVIDERS: ADMIT Hospitalist; ATTEND Hospitalist
DX: R07.89 Other chest pain (principal); R79.89 Other specified abnormal findings of blood chemistry; F32.A Depression, unspecified; F41.9 Anxiety disorder, unspecified; R51.9 Headache, unspecified; J45.909 Unspecified asthma, uncomplicated; Z87.74 Personal history of (corrected) congenital malformations of heart and circulatory system; M79.7 Fibromyalgia; Z98.890 Other specified postprocedural states; Z82.49 Family history of ischemic heart disease and other diseases of the circulatory system; Z80.9 Family history of malignant neoplasm, unspecified; Z83.3 Family history of diabetes mellitus; Z81.3 Family history of other psychoactive substance abuse and dependence; Z91.040 Latex allergy status; Z79.899 Other long term (current) drug therapy; Z79.82 Long term (current) use of aspirin; F17.210 Nicotine dependence, cigarettes, uncomplicated

== ENCOUNTER 2024-09-03 21:59 | Emergency (ER) | payer OTHER ==
[~2024-09-03] VITALS: Ht 157.5 cm; Wt 60.8 kg
[~2024-09-03 21:59] MED LIST changes: +ALBU10.7 PO; +ALL10TAB3 PO; +ASPI81TAEC PO; +ATOR1TAB21 PO; +CEFD1CAP9 PO; +DOXY-440 PO; +INCR1INH PO; +TRAZ-252 PO
[2024-09-03 22:08] VITALS: TEMP 97.3
[2024-09-03 23:02] LABS: HEMATOCRIT 41.6 % (36.0-47.0); HEMOGLOBIN 13.7 g/dl (12.0-15.5); MEAN CORPUSCULAR HEMOGLOBIN 29.9 pg (27.0-33.0); MEAN CORPUSCULAR HGB CONC 32.9 g/dl (32.0-36.5); MEAN CORPUSCULAR VOLUME 90.8 fl (80.0-96.0); PLATELET COUNT, AUTOMATED 254 10^3/uL (150-450); RED BLOOD COUNT 4.58 10^6/uL (4.00-5.40); WHITE BLOOD COUNT 15.7 10^3/uL (4.0-10.0)
[2024-09-03 23:24] LABS: ETHYL ALCOHOL (ETHANOL) 0.007 % (0.000-0.010)
[2024-09-03 23:26] LABS: SALICYLATE LEVEL < 3.0 MG/DL (<30)
[2024-09-03 23:31] LABS: ALBUMIN 3.7 G/DL (3.2-5.2); ALKALINE PHOSPHATASE 73 U/L (35-104); ALT/SGPT 12 U/L (7.0-40); AST/SGOT 12 U/L (<34); BILIRUBIN,DIRECT 0.1 MG/DL (<0.4); BILIRUBIN,TOTAL 0.2 MG/DL (0.3-1.2); BLOOD UREA NITROGEN < 5 MG/DL (9-23); CALCIUM LEVEL 8.7 MG/DL (8.5-10.1); CARBON DIOXIDE LEVEL 28 MMOL/L (20-31); CHLORIDE LEVEL 107 MMOL/L (98-107); CREATININE FOR GFR 0.57 MG/DL (0.55-1.30); GLOMERULAR FILTRATION RATE > 60.0 (>58); GLUCOSE, FASTING 55 MG/DL (60-100); POTASSIUM SERUM 3.1 MMOL/L (3.5-5.1); SODIUM LEVEL 141 MMOL/L (136-145); THYROID STIMULATING HORMONE 1.638 uIU/ML (0.55-4.78); TOTAL PROTEIN 7.5 G/DL (5.7-8.2)
[2024-09-03 23:35] LABS: AMPHETAMINES LEVEL URINE NEGATIVE (NEGATIVE); BARBITURATES URINE NEGATIVE (NEGATIVE); BENZODIAZEPINES URINE NEGATIVE (NEGATIVE); CANNABINOIDS URINE NEGATIVE (NEGATIVE); COCAINE METABOLITE URINE NEGATIVE (NEGATIVE); METHADONE URINE NEGATIVE (NEGATIVE); PHENCYCLIDINE URINE NEGATIVE (NEGATIVE)
[2024-09-03] MEDS ORDERED: HOME MED LIST COMPLETE! XX SCH (23:35)
[2024-09-03 23:37] LABS: HCG, SERUM QUALITATIVE NEGATIVE (NEGATIVE)
[2024-09-03 23:40] LABS: OPIATES URINE POSITIVE (NEGATIVE)
[2024-09-03] MEDS ORDERED: IBUP200C25 PO (23:44)
[2024-09-04] MEDS: POTASSIUM CHLORIDE 10MEQ SR TABLET PO ONE (00:04)
[2024-09-04] MEDS: FAMOTIDINE 20 MG TAB PO ONE (01:30)
[2024-09-04 02:16] VITALS: BP 147/63; O2SAT 97
== END 2024-09-04 02:22 | disposition home or self-care (01) ==
LOC: M ED 21:59 → EDBD 21:59 → M ED 09-04 02:22
DX: F41.9 Anxiety disorder, unspecified (principal); F32.A Depression, unspecified; I45.10 Unspecified right bundle-branch block; J45.909 Unspecified asthma, uncomplicated; R51.9 Headache, unspecified; F17.200 Nicotine dependence, unspecified, uncomplicated; Z91.040 Latex allergy status; Z91.048 Other nonmedicinal substance allergy status; Z87.42 Personal history of other diseases of the female genital tract; Z79.52 Long term (current) use of systemic steroids; Z79.1 Long term (current) use of non-steroidal anti-inflammatories (NSAID); Z79.899 Other long term (current) drug therapy

== ENCOUNTER 2024-11-11 05:04 | Emergency (ER) | payer OTHER ==
[~2024-11-11] VITALS: Ht 160 cm; Wt 65.1 kg
[~2024-11-11 05:04] MED LIST changes: +IBUP200C25 PO
[2024-11-11 05:13] VITALS: BP 126/79; TEMP 99; O2SAT 97
== END 2024-11-11 07:38 | disposition left against medical advice (07) ==
LOC: M ED 05:04
DX: Z53.21 Procedure and treatment not carried out due to patient leaving prior to being seen by health care provider (principal)

== ENCOUNTER 2024-11-11 18:27 | Emergency (ER) | payer OTHER ==
[~2024-11-11] VITALS: Ht 160 cm; Wt 65.3 kg
[2024-11-11 22:56] VITALS: BP 138/65; TEMP 97.4; O2SAT 94
== END 2024-11-12 00:45 | disposition left against medical advice (07) ==
LOC: M ED 18:27
DX: Z53.21 Procedure and treatment not carried out due to patient leaving prior to being seen by health care provider (principal)

== ENCOUNTER → 2025-04-09 | Outpatient (REF) | payer OTHER ==
[2025-04-09 16:41] LABS: CHOLESTEROL LEVEL 110.0 MG/DL (<200); CHOLESTEROL RISK RATIO 2.43 (<5); LDL CHOLESTEROL 51.8 MG/DL (<100); NON-HDL-C 64.8 MG/DL; TRIGLYCERIDES LEVEL 65.0 MG/DL (<150)
[2025-04-09 16:42] LABS: BASO # 0.1 10^3/uL (0.0-0.2); BASO % 0.6 % (0.0-1.0); EOS # 0.2 10^3/uL (0.0-0.5); EOS % 1.7 % (0.0-3.0); LYMPH # 2.4 10^3/uL (1.5-5.0); LYMPH % 23.4 % (24.0-44.0); MONO # 0.7 10^3/uL (0.0-0.8); MONO % 7.1 % (2.0-8.0); NEUTROPHILS # 6.8 10^3/uL (1.5-8.5); NEUTROPHILS % 66.8 % (36.0-66.0); PLATELET COUNT, AUTOMATED 271 10^3/uL (150-450)
== END ==
LOC: M LAB REF 16:14
PROVIDERS: ATTEND Nurse Practitioner Family
DX: J44.9 Chronic obstructive pulmonary disease, unspecified (principal); F41.8 Other specified anxiety disorders; Z13.6 Encounter for screening for cardiovascular disorders; R06.09 Other forms of dyspnea

== ENCOUNTER 2025-05-23 12:16 | Emergency (ER) | payer OTHER ==
[~2025-05-23] VITALS: Ht 160 cm; Wt 61.4 kg
[2025-05-23] MEDS ORDERED: ALBU8.5H INH (12:23)
[2025-05-23 13:04] LABS: VENOUS BASE EXCESS 5.9 (-2.0-2.0); VENOUS HCO3 31.8 MMOL/L (23.0-27.0); VENOUS O2 SATURATION 82.9 % (60.0-80.0); VENOUS PARTIAL PRESSURE CO2 51.3 mmHg (38.0-50.0); VENOUS PARTIAL PRESSURE O2 41.6 mmHg (30.0-50.0); VENOUS PH 7.410 UNITS (7.330-7.430); VENOUS STANDARD HCO3 29.4 MMOL/L; VENOUS TOTAL CO2 33.4 MMOL/L (24.0-28.0)
[2025-05-23 13:06] LABS: BASO # 0.0 10^3/uL (0.0-0.2); BASO % 0.4 % (0.0-1.0); EOS # 0.2 10^3/uL (0.0-0.5); EOS % 2.0 % (0.0-3.0); LYMPH # 1.8 10^3/uL (1.5-5.0); LYMPH % 18.8 % (24.0-44.0); MONO # 0.9 10^3/uL (0.0-0.8); MONO % 9.0 % (2.0-8.0); NEUTROPHILS # 6.7 10^3/uL (1.5-8.5); NEUTROPHILS % 69.4 % (36.0-66.0); PLATELET COUNT, AUTOMATED 291 10^3/uL (150-450)
[2025-05-23] MEDS: IPRATROPIUM 0.5 MG/ALBUTEROL 2.5 MG INH SOL UD 3 ML NEB SCH (13:13)
[2025-05-23 13:43] LABS: CALCIUM LEVEL 8.5 MG/DL (8.5-10.1); CARBON DIOXIDE LEVEL 33 MMOL/L (20-31); CHLORIDE LEVEL 100 MMOL/L (98-107); CREATININE FOR GFR 0.60 MG/DL (0.55-1.30); GLOMERULAR FILTRATION RATE > 90.0 (>58); POTASSIUM SERUM 3.2 MMOL/L (3.5-5.1); SODIUM LEVEL 137 MMOL/L (136-145)
[2025-05-23] MEDS: AZITHROMYCIN 250 MG TABLET PO ONE (14:06)
[2025-05-23] MEDS ORDERED: PRIL20TA2 PO (15:28)
[2025-05-23] MEDS ORDERED: MED REC COMMENT (15:28)
[2025-05-23] MEDS ORDERED: GABA-1171 PO (15:28)
[2025-05-23] MEDS ORDERED: GABA-284 PO (15:28)
[2025-05-23] MEDS ORDERED: FLUO40CA PO (15:28)
[2025-05-23] MEDS ORDERED: HOME MED LIST COMPLETE! XX SCH (15:30)
[2025-05-23] MEDS: IPRATROPIUM 0.5 MG/ALBUTEROL 2.5 MG INH SOL UD 3 ML NEB ONE (15:51)
[2025-05-23 16:04] VITALS: BP 178/78; TEMP 97.6; O2SAT 90
[2025-05-23 16:07] LABS: ABG BASE EXCESS 6.3 (-2.0-2.0); ABG HCO3 30.2 MMOL/L (22.0-26.0); ABG O2 SATURATION 83.3 % (95.0-99.0); ABG PARTIAL PRESSURE CO2 40.9 mmHg (35.0-45.0); ABG STANDARD HCO3 29.8 MMOL/L. (22.0-26.0); ABG TOTAL CO2 31.4 MMOL/L (22.0-29.0); ABG pH (ARTERIAL) 7.486 UNITS (7.350-7.450)
[2025-05-23 16:08] LABS: ABG PARTIAL PRESSURE O2 39.9 mmHg (75.0-100.0)
[2025-05-23] MEDS ORDERED: AZIT500T5 PO (16:15)
== END 2025-05-23 16:14 | disposition left against medical advice (07) ==
LOC: M ED 12:16
DX: J18.9 Pneumonia, unspecified organism (principal); Z53.9 Procedure and treatment not carried out, unspecified reason; M79.7 Fibromyalgia; R51.9 Headache, unspecified; F41.9 Anxiety disorder, unspecified; F32.A Depression, unspecified; N80.9 Endometriosis, unspecified; F17.200 Nicotine dependence, unspecified, uncomplicated; Z91.89 Other specified personal risk factors, not elsewhere classified; Z88.8 Allergy status to other drugs, medicaments and biological substances; Z91.040 Latex allergy status
CPT/HCPCS: 71046; 80048; 82803; 83605; 85025; 87486; 87581; 87633; 87798; 94640; 96374; 99284; J1100